=== PATIENT | female | born 1960 | race Caucasian/White ===

== ENCOUNTER → 2023-10-27 09:14 | Outpatient (CLI) | payer MEDICARE, SELFPAY ==
--- NOTE | 2023-10-27 | DI.MG.S_ITS ---
BILATERAL DIGITAL SCREENING MAMMOGRAM 3D/2D WITH CAD: 10/27/2023 CLINICAL: Routine screening. Baseline exam. No prior exams were available for comparison. There are scattered areas of fibroglandular density in both breasts (category b / 25%-50% glandular tissue). Current study was also evaluated with a Computer Aided Detection (CAD) system. There is a possible round asymmetry with an obscured, indistinct, and circumscribed margin in the right breast at 10 o'clock anterior depth. No other significant masses, calcifications, or other findings are seen in either breast. IMPRESSION: INCOMPLETE: NEEDS ADDITIONAL IMAGING EVALUATION The possible round asymmetry in the right breast is indeterminate. Additional views with possible ultrasound are recommended. Based on the Tyrer Cuzick model (a risk assessment model) the patient's lifetime risk is 5.5% and her 10 year risk is 2.6%. According to the ACR, ACS, and NCCN guidelines, an annual breast MRI exam along with mammogram is recommended if the patient's lifetime risk is 20% or greater. This exam was interpreted at Station ID: [id number]. NOTE: For mammograms, a report in lay terms will be sent to the patient. Approximately 15% of breast malignancies will not be visualized mammographically. In the management of a palpable breast mass, a negative mammogram must not discourage biopsy of a clinically suspicious lesion. Electronically Signed By: Maria bustamante/lucien:10/27/2023 16:14:10 letter sent: Additional Imaging Needed ACR BI-RADS Category 0: Incomplete 3340F
== END ==
LOC: MAMMO 09:16
PROVIDERS: PCP Family Medicine; Referring Provider Family Medicine; Visit Provider Family Medicine
DX: Z12.31 Encounter for screening mammogram for malignant neoplasm of breast (principal); R92.323 Mammographic fibroglandular density, bilateral breasts
CPT/HCPCS: 77063; 77067

== ENCOUNTER → 2023-11-08 15:25 | Outpatient (CLI) | payer MEDICARE, SELFPAY ==
[2023-11-08 17:37] LABS: Add Manual Diff / Slide Review NO; Basophils Absolute Auto 0 /uL (0-100); Basophils Percent Auto 0.2 % (0-2); Eosinophils Absolute Auto 100 /uL (0-450); Eosinophils Percent Auto 0.8 % (2-4); Hematocrit 43.4 % (36-46); Hemoglobin 14.9 g/dL (12.0-16.0); Lymphocytes Absolute Auto 1400 /uL (1100-4500); Lymphocytes Percent Auto 20.4 % (25-40); Mean Corpuscular HGB Conc 34.4 % (30-36); Mean Corpuscular Hemoglobin 31.7 PG (26-34); Mean Corpuscular Volume 92.1 fL (80-100); Monocytes Absolute Auto 500 /uL (0-900); Monocytes Percent Auto 7.6 % (3-14); Neutrophils Absolute Auto 5000 /uL (1500-7000); Platelet Count 235 X10^3/uL (150-400); Red Blood Cell Count 4.71 X10^6/uL (4.0-5.2); Red Cell Distribution Width 13.5 % (11.6-14.8)
[2023-11-08 18:32] LABS: Alanine Aminotransferase 24 IU/L (<35); Albumin 4.3 g/dL (3.5-5.0); Albumin Globulin Ratio 1.3 (1.0-2.8); Alkaline Phosphatase 108 U/L (38-126); Aspartate Aminotransferase 32 IU/L (14-36); BUN Creatinine Ratio 17.2 (6-22); Bilirubin Total 0.5 mg/dL (0.2-1.3); Blood Urea Nitrogen 11 mg/dL (7-17); Calcium 9.8 mg/dL (8.4-10.2); Carbon Dioxide 29 mmol/L (22-32); Chloride 103 mmol/L (98-107); Cholesterol 286 mg/dL (140-199); Estimated Glomerular Filt Rate > 60 mL/min (>60); Globulin 3.3 g/dL (1.7-4.1); Glucose 79 mg/dL (80-110); HDL Cholesterol 70 mg/dL (40-60); HEMOLYSIS < 15 (0-50); LDL Cholesterol Calculated 195 mg/dL (<100); Potassium 4.2 mmol/L (3.4-5.1); Sodium 139 mmol/L (137-145); Total Protein 7.6 g/dL (6.3-8.2); Triglycerides 107 mg/dL (35-150)
[2023-11-08 18:39] LABS: Hemoglobin A1C% w Est Avg Glu 5.1 % (4.0-6.0)
== END ==
PROVIDERS: PCP Family Medicine; Referring Provider Family Medicine; Visit Provider Family Medicine
DX: I44.7 Left bundle-branch block, unspecified (principal)
CPT/HCPCS: 36415; 80053; 80061; 83036; 85025

== ENCOUNTER → 2023-11-17 12:07 | Outpatient (CLI) | payer MEDICARE, SELFPAY ==
--- NOTE | 2023-11-17 12:08 | DI.MG.S_ITS ---
UNILATERAL RIGHT DIGITAL DIAGNOSTIC MAMMOGRAM 3D/2D WITH ADDITIONAL VIEWS: 11/17/2023 CLINICAL: Additional evaluation requested from prior study. Comparison is made to exam dated: 10/27/2023 mammogram - [facility]. There are scattered areas of fibroglandular density in the right breast (category b / 25%-50% glandular tissue). The finding seen on recent screening mammogram did not persist with additional imaging and is consistent with superimposition of normal breast tissue. No significant masses, calcifications, or other findings are seen in the breast. IMPRESSION: NEGATIVE Superimposition of normal breast tissue. No mammographic evidence of malignancy. A 1 year screening mammogram is recommended. Findings and recommendations were conveyed to the patient during today's evaluation. Based on the Tyrer Cuzick model (a risk assessment model) the patient's lifetime risk is 5.5% and her 10 year risk is 2.6%. According to the ACR, ACS, and NCCN guidelines, an annual breast MRI exam along with mammogram is recommended if the patient's lifetime risk is 20% or greater. This exam was interpreted at Station ID: [id number]. NOTE: For mammograms, a report in lay terms will be sent to the patient. Approximately 15% of breast malignancies will not be visualized mammographically. In the management of a palpable breast mass, a negative mammogram must not discourage biopsy of a clinically suspicious lesion. Electronically Signed By: Rebekah Reveles M.D., Ph.D. eb/:11/17/2023 13:18:15 letter sent: Normal Exam ACR BI-RADS Category 1: Negative 3341F
--- NOTE | 2023-11-17 12:30 | DI.RAD.S_ITS ---
PROCEDURE: XR DEXA AXIAL SKELETON INDICATIONS: screening COMPARISON: None. FINDINGS: Lumbar Spine: Bone mineral density 0.90 g/cm2, T score -1.3,. Left Hip: Bone mineral density 0.87 g/cm2, T score -0.6,. Left Femoral Neck: Bone mineral density 0.74 g/cm2, T score -1,. Right Hip: Bone mineral density 0.84 g/cm2, T score -0.8,. Right Femoral Neck: Bone mineral density 0.72 g/cm2, T score -1.2,. Fracture Risk Calculation (when applicable): 10-year fracture risk of a major osteoporotic fracture 8% and of a hip fracture 0.7%. (T score greater or equal to -1.0 to: NORMAL) (T score from -1.1 to -2.4: OSTEOPENIA) (T score less than or equal to -2.5: OSTEOPOROSIS) IMPRESSION: Osteopenia, with fracture risk calculations as above. Follow-up guidelines as follows: Osteoporosis: Consider a repeat DEXA and Vertebral Fracture Assessment (VFA) exam in 2 years or sooner if medically necessary, to reassess this patient's status. Osteopenia: Consider a repeat DEXA in 2-3 years to reassess this patient's status, or if there is a new clinical indication. Normal: Consider a repeat DEXA in 5 years or sooner, or if there is a new clinical indication. All treatment decisions require clinical judgment and consideration of individual patient factors, including patient preferences, comorbidities, previous drug use, risk factors not captured in the FRAX model (e.g., frailty, falls, vitamin D deficiency, increased bone turnover, interval significant decline in bone density ) and possible under- or over-estimation of fracture risk by FRAX. In addition, the NOF Guide recommends that FDA-approved medical therapies be considered in postmenopausal women and men age >= 50 years with a: * Hip or vertebral (clinical or morphometric) fracture * T-score of <=-2.5 at the spine or hip * Ten-year fracture probability by FRAX of >= 3% for hip fracture or >=20% for major osteoporotic fracture. People with diagnosed cases of osteoporosis or at high risk for fracture should have regular bone mineral density tests. For patients eligible for Medicare, routine testing is allowed once every 2 years. The testing frequency can be increased to one year for patients who have rapidly progressing disease, those who are receiving or discontinuing medical therapy to restore bone mass, or have additional risk factors. Dictated by: Mario Muñiz M.D. on 11/17/2023 at 17:15 Approved by: Mario Muñiz M.D. on 11/17/2023 at 17:17
== END ==
PROVIDERS: PCP Family Medicine; Referring Provider Family Medicine; Visit Provider Family Medicine
DX: R92.8 Other abnormal and inconclusive findings on diagnostic imaging of breast (principal); Z78.0 Asymptomatic menopausal state; M85.89 Other specified disorders of bone density and structure, multiple sites
CPT/HCPCS: 77065; 77080; G0279

== ENCOUNTER → 2024-01-06 09:58 | Outpatient (CLI) | payer MEDICARE, SELFPAY ==
[2024-01-06 12:30] LABS: Cholesterol 178 mg/dL (140-199); HDL Cholesterol 64 mg/dL (40-60); LDL Cholesterol Calculated 93 mg/dL (<100); Triglycerides 106 mg/dL (35-150)
[2024-01-06 14:38] LABS: HIV 1 & 2 Ab/Ag 4th Gen Combo NEGATIVE (NEGATIVE); Hep C Virus Ab w/Reflex Quant NEGATIVE s/c (NEGATIVE)
== END ==
PROVIDERS: Family Provider Family Medicine; PCP Family Medicine; Referring Provider Family Medicine; Visit Provider Family Medicine
DX: E78.5 Hyperlipidemia, unspecified (principal); Z11.59 Encounter for screening for other viral diseases; Z11.4 Encounter for screening for human immunodeficiency virus [HIV]
CPT/HCPCS: 36415; 80061; 86803; 87389

== ENCOUNTER → 2024-01-07 07:52 | Outpatient (CLI) | payer MEDICARE, SELFPAY ==
--- NOTE | 2024-01-07 08:02 | EKG_ITS ---
[address] [address] Test Date: 2024-01-07 Pat Name: Sissy Mercado Department: [facility] Room: Gender: Female Public Opinion Survey Taker: TAE : 1960 Requested By: Order Number: [id number] Reading MD: Carlos Martines Measurements Intervals [place] Rate: 69 P: 67 [place]: 200 QRS: -21 QRSD: 144 T: 88 QT: 416 QTc: 445 Interpretive Statements Normal sinus rhythm Left bundle branch block Electronically Signed On 01-07-2024 9:07:28 PDT by Carlos Martines
== END ==
PROVIDERS: Family Provider Family Medicine; PCP Family Medicine; Referring Provider Family Medicine; Visit Provider Family Medicine
DX: I44.7 Left bundle-branch block, unspecified (principal)
CPT/HCPCS: 93005

== ENCOUNTER 2024-02-08 13:18 | Day surgery (SDC) | payer MEDICARE, SELFPAY ==
[2024-02-08 13:55] VITALS: BP 141/79; PULSE 101; RESP 18; TEMP 36.2; O2SAT 95
--- NOTE | 2024-02-08 14:39 | P.HP_ITS ---
History of Present Illness History of Present Illness Date Patient Seen: 02/08/24 Time Patient Seen: 14:39 Chief complaint: Screening Colonoscopy Narrative: 63-year-old woman here for screening colonoscopy. Last colonoscopy 10 years ago at [facility] 1 benign polyp. No family history of colon cancer. No abdominal concerns. [facility] Medical History Migraines (~1989) Knee pain (~2017) Mumps (~1966) Chicken pox (~1965) Abnormal Pap smear of cervix (~1996) Post-menopause LBBB (left bundle branch block) (~2013) Bilateral knee pain Family History Father History of heart disease Grandfather Cancer Grandmother History of heart disease Social History Smoking Status: Never smoker alcohol intake: former Meds Home Medications and Allergies Home Medications Medication Instructions Recorded Confirmed Type tretinoin 0.025 % topical cream 1 applic topical BEDTIME 11/08/23 02/08/24 History (Retin-A) atorvastatin 20 mg tablet 20 mg PO BEDTIME #90 tabs 12/31/23 02/08/24 Rx clotrimazole 1 % topical cream 1 applic topical TID #45 grams 12/31/23 02/08/24 Rx Allergies Allergy/AdvReac Type Severity Reaction Status Date / Time No Known Drug Allergies Allergy Verified 02/08/24 13:53 Exam Vital Signs (past 8 hours): - 02/08/24 13:55 Temperature 97.1 F L Pulse Rate 101 H Respiratory Rate 18 Blood Pressure 141/79 H Pulse Oximetry 95 Oxygen Delivery Method Room Air Oxygen Delivery Method Room Air Narrative Exam Narrative: General adult woman alert oriented no acute distress Chest nonlabored respiration Extremities warm well perfused Assessment & Plan Assessment and plan (1) Personal history of colonic polyps: Status: Acute Assessment & Plan narrative: The patient requires colorectal screening and colonoscopy is recommended. Technical details were discussed. Risks, benefits, alternatives explained. Risks including but not limited to myocardial infarction, aspiration, bleeding, pain, missed lesion, incomplete examination, need for further radiographic s tudies, intestinal injury, and need for major abdominal surgery were discussed. All questions were answered to their satisfaction, and they are in agreement with this plan. Time-Based Coding :: [TOTAL MINUTES] spent with patient and on the chart (including review of chart, obtaining history, exam, reviewing outside data, placing orders, documenting exam and treatment plan, and counseling patient) on [DATE].
[2024-02-08 15:10] VITALS: BP 96/55; PULSE 79; RESP 17; TEMP 37.1; O2SAT 93
[2024-02-08 15:16] VITALS: BP 113/56; PULSE 78; RESP 13; O2SAT 94
--- NOTE | 2024-02-08 15:17 | P.OP.COLON_ITS ---
Operative Date/Time/Diagnoses Date of procedure: 02/08/24 Time of procedure: 15:17 Pre-op diagnosis: Personal history of colonic polyps Procedure & Clinicians Study performed: Screening colonoscopy Same procedure as scheduled: Yes Indications: Colorectal screening Surgeon: Doug Craft Procedure Notes Procedure in detail: The history and physical was performed/updated and the patient is ASA class is 2. The procedure was discussed in detail with the patient. Potential risks complications including infection, bleeding, missed diagnosis, perforation, need for surgery, and were explained. Their questions were answered and informed consent was obtained. Patient was brought to the procedure room and placed standard monitoring equipment. The patient's vital signs were monitored continuously throughout the entire procedure. Prior to starting time-out was performed. The patient was placed in the left lateral recumbent position. Procedural sedation was administered by anesthesia. Examination began with a thorough inspection of the perianal area there was no evidence of fissures, fistulae, external hemorrhoids or cutaneous malignancy. The colonoscopy scope was then placed into the anal canal and was advanced to the cecum, which was identified by the ileocecal valve, the appendiceal orifice and the confluence of the taenia. The scope was then slowly withdrawn examining colon thoroughly in all directions, irrigating it of any residual stool. The scope was retroflexed within the rectum The patient tolerated the procedure well. They will be discharged once criteria are met. The prep was of good/excellent quality. The withdrawl time was 7 minutes. FINDINGS * Tortuous proximal colon. Required stiffening of the scope and external compression. * Internal hemorrhoids * Mild diverticulosis of distal colon Specimen(s): none sent Post-procedure Recommendations: Colonoscopy in 10 years Disposition: same day surgery
[2024-02-08 15:22] VITALS: BP 104/68; PULSE 81; RESP 13; O2SAT 98
== END 2024-02-08 15:35 | disposition home or self-care (01) ==
PROVIDERS: Family Provider Family Medicine; PCP Family Medicine; Referring Provider Surgery; Visit Provider Surgery
PROC: 0DJD8ZZ Inspection of Lower Intestinal Tract, Via Natural or Artificial Opening Endoscopic (ICD-10-PCS; CPT 45378; principal; 2024-02-08 14:30)
DX: Z12.11 Encounter for screening for malignant neoplasm of colon (principal); Z86.0100 Personal history of colon polyps, unspecified; K57.30 Diverticulosis of large intestine without perforation or abscess without bleeding; K64.8 Other hemorrhoids
CPT/HCPCS: G0105; J2704

== ENCOUNTER 2024-02-17 09:45 | Outpatient (RCR) | payer MEDICARE, SELFPAY ==
--- NOTE | 2023-12-27 12:22 | PT.OIE ---
Current Diagnoses Pain in right knee (12/27/23) Pain in left knee (12/27/23) Difficulty in walking, not elsewhere classified (12/27/23) Abnormal posture (12/27/23) Weakness (12/27/23) Past Medical History (Last Updated 11/28/23 @ 19:48 by Maria Eugenia Ambrocio) Abnormal Pap smear of cervix (~1996) Bilateral knee pain Chicken pox (~1965) Knee pain (~2017) LBBB (left bundle branch block) (~2013) Migraines (~1989) Mumps (~1966) Post-menopause Visit Care Team Role Provider Type Eda Chandra MD Attending Provider Physician Family Provider Primary Care Provider Referring Provider Specialty: Family Practice WORKFORCE MANAGEMENT ANALYST Address: [address] [place] [address], [id number] Email: [email or web address] Physical Therapy Initial Evaluation PT-OP-A Visit Information Start: 12/20/23 08:35 Freq: Status: Active Protocol: Document 12/27/23 09:06 [facility] (Rec: 12/27/23 09:50 [facility] [id number]) Out-Patient Physical Therapy Visit Information Visit Information Visit Type Initial Evaluation Visit Start Time 09:06 Visit Stop Time 09:48 Visit Number 1 Number of GENERAL TECHNICIAN Visits 0 PT-OP-B Current Condition Start: 12/20/23 08:35 Freq: Status: Active Protocol: Document 12/27/23 09:06 [facility] (Rec: 12/27/23 09:50 [facility] [id number]) Current Condition History of Current Condition Onset Date 4 years Current Complaints B knee pain History of Current Condition Pt reprots used to hike a ton but now it is painfula nd she doesn't trust her knees. she is doing less distance and elevation. She fell about 4 years ago on granite and hurt her R hand a lot and focuse don that. Since then her knees haven't been the same. 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 Encouraged her to wear a brace when hiking but it was so hot so hasn't done it much. They also encuraged her to lose weight whichhasn't changed much. She is planning to try PT and work on wt more prior to injections. What scares her the most is when R>L gives out and that she cant get up from the ground. Knees lock up in bed until she tries to move it and she hears it click and it moves. Pt reports bending down like squat she gets crepitis and it hurts. Hasn't kayaked recently d/t difficulty getting in/out of the boat. Happed a few times where she was walking up a hill where she couldn't move fwd for about 4 steps and had to circumduct R leg. Treatment Goals Patient/Caregiver Goals exercises that would help knee OA, be able to get up/down from the ground, less pain w/ stairs and hills or feel like it will give out, get in/out of kayak (squat) PT-OP-C Subjective Start: 12/20/23 08:35 Freq: Status: Active Protocol: Document 12/27/23 09:06 [facility] (Rec: 12/27/23 09:50 [facility] [id number]) Patient Questionnaires Lower Extremity Functional Scale LEFS Score 64/80 OP-PT Pain Assessment Location B knees Pain Location Details lat and ant knee Description With Movement Description- Other loud crepitis Frequency Intermittent Pain Duration mostly goes away when done activty Pain Aggravating Factors Walking,Stair Climbing,Bending Other Pain Aggravating Factors squat, up/down ground, hiking w/hills, locks in bed Other Pain Alleviating Factors ibuprofen PT-OP-D Balance Start: 12/20/23 08:35 Freq: Status: Active Protocol: Document 12/27/23 09:06 [facility] (Rec: 12/27/23 09:50 [facility] [id number]) Balance Tests Single Limb Standing Single Limb- Right >30 sec Single Limb- Left >30 sec PT-OP-G Mobility & Gait Start: 12/20/23 08:35 Freq: Status: Active Protocol: Document 12/27/23 09:06 [facility] (Rec: 12/27/23 09:50 [facility] [id number]) OP Gait Assessment Comments Gait Comments dec trunk motion, excessive pronation PT-OP-J Posture/Palpation/Skin Start: 12/20/23 08:35 Freq: Status: Active Protocol: Document 12/27/23 09:06 [facility] (Rec: 12/27/23 09:50 [facility] [id number]) Posture Evaluation Comments Posture Comments R iliac crest higher, equal greater trochanter, IR of femur, ER tibia PT-OP-K Range of Motion Start: 12/20/23 08:35 Freq: Status: Active Protocol: Document 12/27/23 09:06 [facility] (Rec: 12/27/23 09:50 [facility] [id number]) Knee Goniometric Range of Motion Knee Left Flexion Active (degrees) 128 Extension Active (degrees) 0 Comments flex feel in back of thigh Right Flexion Active (degrees) 130 Extension Active (degrees) 3 Comments pain both directions PT-OP-L Special Tests Start: 12/20/23 08:35 Freq: Status: Active Protocol: Document 12/27/23 09:06 [facility] (Rec: 12/27/23 09:50 [facility] [id number]) Special Tests Knee Special Tests Chuck Test Comments neg B ligaments Comments ACL, MCL, PCL, LCL neg B PT-OP-M Strength Start: 12/20/23 08:35 Freq: Status: Active Protocol: Document 12/27/23 09:06 [facility] (Rec: 12/27/23 09:50 [facility] [id number]) Hip Strength Hip Manual Muscle Testing Left Flexion (L2) 3+ Fair+ Extension (S1) 4+ Good+ Abduction 3+ Fair+ Adduction 3+ Fair+ External Rotation 3+ Fair+ Internal Rotation 5 Normal Right Flexion (L2) 3+ Fair+ Extension (S1) 4+ Good+ Abduction 3+ Fair+ Adduction 3+ Fair+ External Rotation 3+ Fair+ Internal Rotation 5 Normal Knee Strength Knee Manual Muscle Testing Left Flexion (S2) 4- Good- Extension (L3) 4- Good- Right Flexion (S2) 4 Good Extension (L3) 4 Good Ankle/Foot Strength Ankle and Foot Manual Muscle Testing Left Dorsiflexion (L4) 5 Normal Plantarflexion (S1) 5 Normal Comments 20 heel raises pain in knee Right Dorsiflexion (L4) 5 Normal Plantarflexion (S1) 5 Normal Comments 20 heel raises w/knee pain and R foot(starts to bend R knee) PT-OP-Q Treatments Start: 12/20/23 08:35 Freq: Status: Active Protocol: Document 12/27/23 09:06 [facility] (Rec: 12/27/23 12:11 [facility] [id number]) Self-Care/Home Management Treatment Education Other Education 10 min: edu re: replacing shoes more frequently (had current ones for a couple years), showed pt wear down through tread and cushion, discussed what to look for in shoe w/bend at toes and equal rotational bending, fits foot fully w/o toes crunched or part of foot hanging off cushion, importance of tread for hiking, edu to try stepping up, squatting and walk entire store to assess comfort PT-OP-T Assessment and Plan Start: 12/20/23 08:35 Freq: Status: Active Protocol: Document 12/27/23 09:06 [facility] (Rec: 12/27/23 09:50 [facility] [id number]) Physical Therapy Assessment Rehab Potential Rehabilitation Potential Good Evaluation Complexity Number of Personal Factors/Comorbidities 1-2 Number of Body Systems Impaired 4 or More Clinical Presentation at Evaluation Evolving Impairments Impairments Activity Tolerance,Balance, Functional Activities, Functional Mobility,Gait,Pain, Posture,ROM,Soft Tissue Mobility,Strength,Transfers Goals strength Short Term Goal (STG) Pt will be indep w/HEP STG Duration 02/09 Fci Goal (LTG) Pt will score at least 4+/5 on all BLE MMT and at least 3/5 on LPM to show improved strength and stability in order to allow greater ease w/ activities w/o inc pain. LTG Duration 03/13 stairs Short Term Goal (STG) Pt will be able to reiciprocate up stairs w/o rail w/o inc knee pain. STG Duration 02/11 [facility]ci Goal (LTG) Pt will be able to reiciprocate down stairs w/o rail w/o inc knee pain. LTG Duration 03/20/24 activities Short Term Goal (STG) Pt will be able to get up/down from the ground indep safely STG Duration 02/12 [facility]ci Goal (LTG) Pt will be able to hike on hills w/o knee pain greater than 2/10 and without feeling unstable LTG Duration 03/18/24 Assessment Summary Assessment Pt presents w/B knee OA w/c/o increasingly worsening pain in B knees and giving out and locking sicne fall 4 years ago . She was negative for all ligamentous testing and Chuck testing, but does have significant loud popping w/squatting and/or sit<>Stands alng w/report of B OA noted in Xrays. She is overall weak and does have significant rotation at femurs and tibia likely increasing force onto knees. She would benefit from skilled PT to work on strength , ROM, mobility and gait mechanics to improve movement mechanics and dec pain. Physical Therapy Plan Frequency and Duration Frequency of Treatment 2x/Week Duration of treatment (weeks) 12 Plan of Care Start Date 12/27/23 Plan of Care End Date 03/20/24 Therapeutic Interventions Therapeutic Interventions Balance Training,Gait Training ,Home Exercise Program,Joint Mobilizations,Manual Therapy, Neuromuscular Re-education, Patient/Caregiver Education, Self-Care/Home Management,Soft Tissue Mobilization,Taping, Therapeutic Activities, Therapeutic Exercises Modalities Cold Pack/Ice Massage,Electric Stimulation,Hot Packs, Infrared Therapy,Ultrasound Next Visit Focus/Plan Next Note Type Treatment Note Next Visit Plan HEP: sidesteps w/band, mini squats, bridges, clamshells, self roll out, stretches as needed Manual: work on foot/ankle and hip mobility (gentle as pt has osteopenia) to improve alignment along w/knee mobs to improve gliding; STM to thighs
--- NOTE | 2023-12-27 12:22 | PT.OPPOC ---
Physical, Occupational & Speech Therapy At [facility] Current Diagnoses Pain in right knee (12/27/23) Pain in left knee (12/27/23) Difficulty in walking, not elsewhere classified (12/27/23) Abnormal posture (12/27/23) Weakness (12/27/23) Visit Care Team Role Provider Type Eda Chandra MD Attending Provider Physician Family Provider Primary Care Provider Referring Provider Specialty: Family Practice STEAM BLOCKER Address: [facility] [place], [address] Email: [email or web address] Plan Of Care PT-OP-B Current Condition Start: 12/20/23 08:35 Freq: Status: Active Protocol: Document 12/27/23 09:06 [facility] (Rec: 12/27/23 09:50 [facility] [id number]) Current Condition History of Current Condition Onset Date 4 years Current Complaints B knee pain History of Current Condition Pt reprots used to hike a ton but now it is painfula nd she doesn't trust her knees. she is doing less distance and elevation. She fell about 4 years ago on [place] and hurt her R hand a lot and focuse don that. Since then her knees haven't been the same. 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 Encouraged her to wear a brace when hiking but it was so hot so hasn't done it much. They also encuraged her to lose weight whichhasn't changed much. She is planning to try PT and work on wt more prior to injections. What scares her the most is when R>L gives out and that she cant get up from the ground. Knees lock up in bed until she tries to move it and she hears it click and it moves. Pt reports bending down like squat she gets crepitis and it hurts. Hasn't kayaked recently d/t difficulty getting in/out of the boat. Happed a few times where she was walking up a hill where she couldn't move fwd for about 4 steps and had to circumduct R leg. Treatment Goals Patient/Caregiver Goals exercises that would help knee OA, be able to get up/down from the ground, less pain w/ stairs and hills or feel like it will give out, get in/out of kayak (squat) PT-OP-T Assessment and Plan Start: 12/20/23 08:35 Freq: Status: Active Protocol: Document 12/27/23 09:06 [facility] (Rec: 12/27/23 09:50 [facility] [id number]) Physical Therapy Assessment Rehab Potential Rehabilitation Potential Good Evaluation Complexity Number of Personal Factors/Comorbidities 1-2 Number of Body Systems Impaired 4 or More Clinical Presentation at Evaluation Evolving Impairments Impairments Activity Tolerance,Balance, Functional Activities, Functional Mobility,Gait,Pain, Posture,ROM,Soft Tissue Mobility,Strength,Transfers Goals strength Short Term Goal (STG) Pt will be indep w/HEP STG Duration 02/09 Custodial Goal (LTG) Pt will score at least 4+/5 on all BLE MMT and at least 3/5 on LPM to show improved strength and stability in order to allow greater ease w/ activities w/o inc pain. LTG Duration 03/13 stairs Short Term Goal (STG) Pt will be able to reiciprocate up stairs w/o rail w/o inc knee pain. STG Duration 02/11 Drilling Contractor Goal (LTG) Pt will be able to reiciprocate down stairs w/o rail w/o inc knee pain. LTG Duration 03/20/24 activities Short Term Goal (STG) Pt will be able to get up/down from the ground indep safely STG Duration 02/12 Drilling Contractor Goal (LTG) Pt will be able to hike on hills w/o knee pain greater than 2/10 and without feeling unstable LTG Duration 03/18/24 Assessment Summary Assessment Pt presents w/B knee OA w/c/o increasingly worsening pain in B knees and giving out and locking sicne fall 4 years ago . She was negative for all ligamentous testing and [place] testing, but does have significant loud popping w/squatting and/or sit<>Stands alng w/report of B OA noted in Xrays. She is overall weak and does have significant rotation at femurs and tibia likely increasing force onto knees. She would benefit from skilled PT to work on strength , ROM, mobility and gait mechanics to improve movement mechanics and dec pain. Physical Therapy Plan Frequency and Duration Frequency of Treatment 2x/Week Duration of treatment (weeks) 12 Plan of Care Start Date 12/27/23 Plan of Care End Date 03/20/24 Therapeutic Interventions Therapeutic Interventions Balance Training,Gait Training ,Home Exercise Program,Joint Mobilizations,Manual Therapy, Neuromuscular Re-education, Patient/Caregiver Education, Self-Care/Home Management,Soft Tissue Mobilization,Taping, Therapeutic Activities, Therapeutic Exercises Modalities Cold Pack/Ice Massage,Electric Stimulation,Hot Packs, Infrared Therapy,Ultrasound Next Visit Focus/Plan Next Note Type Treatment Note Next Visit Plan HEP: sidesteps w/band, mini squats, bridges, clamshells, self roll out, stretches as needed Manual: work on foot/ankle and hip mobility (gentle as pt has osteopenia) to improve alignment along w/knee mobs to improve gliding; STM to thighs Plan of Care Dates Plan of Care Start Date 12/27/23 Plan of Care End Date 03/20/24 Electronically Signed by: Kimberly Dewey, PT 12/27/23 [id number] If you are in agreement with this Plan of Care, please return a signed and dated copy. I have reviewed this Plan of Care and certify that the skilled therapy services above are required to meet the patient?s needs. Physician Signature Date Printed Name and Credentials Clinical Instructor Signature Printed Name and Credentials
--- NOTE | 2023-12-30 12:25 | PT.OTN ---
Current Diagnoses Pain in right knee (12/30/23) Pain in left knee (12/30/23) Difficulty in walking, not elsewhere classified (12/30/23) Abnormal posture (12/30/23) Weakness (12/30/23) Physical Therapy Treatment Note PT-OP-A Visit Information Start: 12/20/23 08:35 Freq: Status: Active Protocol: Document 12/30/23 09:02 [facility] (Rec: 12/30/23 12:25 [facility] [id number]) Out-Patient Physical Therapy Visit Information Visit Information Visit Type Treatment Note Visit Note 04/24 Visit Start Time 09:06 Visit Stop Time 09:46 Visit Number 2 Number of HAUL DRIVER Visits 0 PT-OP-B Current Condition Start: 12/20/23 08:35 Freq: Status: Active Protocol: Document 12/27/23 09:06 [facility] (Rec: 12/27/23 09:50 [facility] [id number]) Current Condition History of Current Condition Onset Date 4 years Current Complaints B knee pain History of Current Condition Pt reprots used to hike a ton but now it is painfula nd she doesn't trust her knees. she is doing less distance and elevation. She fell about 4 years ago on [place] and hurt her R hand a lot and focuse don that. Since then her knees haven't been the same. 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 Encouraged her to wear a brace when hiking but it was so hot so hasn't done it much. They also encuraged her to lose weight whichhasn't changed much. She is planning to try PT and work on wt more prior to injections. What scares her the most is when R>L gives out and that she cant get up from the ground. Knees lock up in bed until she tries to move it and she hears it click and it moves. Pt reports bending down like squat she gets crepitis and it hurts. Hasn't kayaked recently d/t difficulty getting in/out of the boat. Happed a few times where she was walking up a hill where she couldn't move fwd for about 4 steps and had to circumduct R leg. Treatment Goals Patient/Caregiver Goals exercises that would help knee OA, be able to get up/down from the ground, less pain w/ stairs and hills or feel like it will give out, get in/out of kayak (squat) PT-OP-C Subjective Start: 12/20/23 08:35 Freq: Status: Active Protocol: Document 12/30/23 09:02 [facility] (Rec: 12/30/23 12:25 [facility] [id number]) OP-PT Subjective Patient Comments Patient Comments Reports found that she had gortex shoes at home that were new that she is wearing PT-OP-D Balance Start: 12/20/23 08:35 Freq: Status: Active Protocol: Document 12/27/23 09:06 [facility] (Rec: 12/27/23 09:50 [facility] [id number]) Balance Tests Single Limb Standing Single Limb- Right >30 sec Single Limb- Left >30 sec PT-OP-G Mobility & Gait Start: 12/20/23 08:35 Freq: Status: Active Protocol: Document 12/27/23 09:06 [facility] (Rec: 12/27/23 09:50 [facility] [id number]) OP Gait Assessment Comments Gait Comments dec trunk motion, excessive pronation PT-OP-J Posture/Palpation/Skin Start: 12/20/23 08:35 Freq: Status: Active Protocol: Document 12/27/23 09:06 [facility] (Rec: 12/27/23 09:50 [facility] [id number]) Posture Evaluation Comments Posture Comments R iliac crest higher, equal greater trochanter, IR of femur, ER tibia PT-OP-K Range of Motion Start: 12/20/23 08:35 Freq: Status: Active Protocol: Document 12/27/23 09:06 [facility] (Rec: 12/27/23 09:50 [facility] [id number]) Knee Goniometric Range of Motion Knee Left Flexion Active (degrees) 128 Extension Active (degrees) 0 Comments flex feel in back of thigh Right Flexion Active (degrees) 130 Extension Active (degrees) 3 Comments pain both directions PT-OP-L Special Tests Start: 12/20/23 08:35 Freq: Status: Active Protocol: Document 12/27/23 09:06 [facility] (Rec: 12/27/23 09:50 [facility] [id number]) Special Tests Knee Special Tests Chuck Test Comments neg B ligaments Comments ACL, MCL, PCL, LCL neg B PT-OP-M Strength Start: 12/20/23 08:35 Freq: Status: Active Protocol: Document 12/27/23 09:06 [facility] (Rec: 12/27/23 09:50 [facility] [id number]) Hip Strength Hip Manual Muscle Testing Left Flexion (L2) 3+ Fair+ Extension (S1) 4+ Good+ Abduction 3+ Fair+ Adduction 3+ Fair+ External Rotation 3+ Fair+ Internal Rotation 5 Normal Right Flexion (L2) 3+ Fair+ Extension (S1) 4+ Good+ Abduction 3+ Fair+ Adduction 3+ Fair+ External Rotation 3+ Fair+ Internal Rotation 5 Normal Knee Strength Knee Manual Muscle Testing Left Flexion (S2) 4- Good- Extension (L3) 4- Good- Right Flexion (S2) 4 Good Extension (L3) 4 Good Ankle/Foot Strength Ankle and Foot Manual Muscle Testing Left Dorsiflexion (L4) 5 Normal Plantarflexion (S1) 5 Normal Comments 20 heel raises pain in knee Right Dorsiflexion (L4) 5 Normal Plantarflexion (S1) 5 Normal Comments 20 heel raises w/knee pain and R foot(starts to bend R knee) PT-OP-Q Treatments Start: 12/20/23 08:35 Freq: Status: Active Protocol: Document 12/30/23 09:02 [facility] (Rec: 12/30/23 12:25 [facility] [id number]) Therapeutic Exercises Supine Exercises bridge Side bilateral Equipment Used L2 Reps/Minutes 10 sec x6 Comments cues segmental Sidelying Exercises clamshells Side bilateral Equipment Used L2 Reps/Minutes 12 ea Comments cues no roll Standing Exercises stretch Standing Exercise Name 1. quad on chair 2. calf on step Side bilateral Reps/Minutes 1 min ea Comments HEP mini squats Standing Exercise Name 1. w/band aroudn knees 2. wall squat w/ball Side bilateral Reps/Minutes 15 ea Comments wall squat for HEP partial range sidesteps Standing Exercise Name HEP Side bilateral Equipment Used L2 Reps/Minutes 20ft Comments cues on posture, and controlled position Manual Therapy Treatment Consent Patient gave verbal consent for manual Yes treatment Soft Tissue Mobilization quad Body Location L distal Mobilization Type Rolling,Sustained Pressure, Trigger Point Release Intensity/Depth Moderate Joint Mobilizations patello femoral Joint B Grade II Body Position Supine Comments sup, inf, med tibiofemoral Comments AP B femur and tibia ea Taping KT Type of Tape Kinesio Tape Comments 1 I strip under each patella PT-OP-T Assessment and Plan Start: 12/20/23 08:35 Freq: Status: Active Protocol: Document 12/30/23 09:02 [facility] (Rec: 12/30/23 12:25 [facility] [id number]) Physical Therapy Assessment Goals strength Short Term Goal (STG) Pt will be indep w/HEP STG Duration 02/09 Respiratory Clinician Goal (LTG) Pt will score at least 4+/5 on all BLE MMT and at least 3/5 on LPM to show improved strength and stability in order to allow greater ease w/ activities w/o inc pain. LTG Duration 03/13 stairs Short Term Goal (STG) Pt will be able to reiciprocate up stairs w/o rail w/o inc knee pain. STG Duration 02/11 Residential Goal (LTG) Pt will be able to reiciprocate down stairs w/o rail w/o inc knee pain. LTG Duration 03/20/24 activities Short Term Goal (STG) Pt will be able to get up/down from the ground indep safely STG Duration 02/12 Residential Goal (LTG) Pt will be able to hike on hills w/o knee pain greater than 2/10 and without feeling unstable LTG Duration 03/18/24 Assessment Summary Assessment Pt did well with exercsies w/ cues today but all given for HEP did not inc pain. inc pain when tried SL bridge so will progress to that later. Physical Therapy Plan Frequency and Duration Frequency of Treatment 2x/Week Duration of treatment (weeks) 12 Plan of Care Start Date 12/27/23 Plan of Care End Date 03/20/24 Next Visit Focus/Plan Next Note Type Treatment Note Next Visit Plan HEP: sidesteps w/band, mini squats, bridges, clamshells, stretches add self roll out Manual: work on foot/ankle and hip mobility (gentle as pt has osteopenia) to improve alignment along w/knee mobs to improve gliding; STM to thighs
--- NOTE | 2024-01-03 18:29 | PT.OTN ---
Current Diagnoses Pain in right knee (12/30/23) Pain in left knee (12/30/23) Difficulty in walking, not elsewhere classified (12/30/23) Abnormal posture (12/30/23) Weakness (12/30/23) Physical Therapy Treatment Note PT-OP-A Visit Information Start: 12/20/23 08:35 Freq: Status: Active Protocol: Document 01/03/24 18:26 [facility] (Rec: 01/03/24 18:29 [facility] [id number]) Out-Patient Physical Therapy Visit Information Visit Information Visit Type Treatment Note Visit Note 05/22 Visit Start Time 09:07 Visit Stop Time 09:47 Visit Number 3 Number of UPTWISTER TENDER Visits 0 PT-OP-B Current Condition Start: 12/20/23 08:35 Freq: Status: Active Protocol: Document 12/27/23 09:06 [facility] (Rec: 12/27/23 09:50 [facility] [id number]) Current Condition History of Current Condition Onset Date 4 years Current Complaints B knee pain History of Current Condition Pt reprots used to hike a ton but now it is painfula nd she doesn't trust her knees. she is doing less distance and elevation. She fell about 4 years ago on [place] and hurt her R hand a lot and focuse don that. Since then her knees haven't been the same. 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 Encouraged her to wear a brace when hiking but it was so hot so hasn't done it much. They also encuraged her to lose weight whichhasn't changed much. She is planning to try PT and work on wt more prior to injections. What scares her the most is when R>L gives out and that she cant get up from the ground. Knees lock up in bed until she tries to move it and she hears it click and it moves. Pt reports bending down like squat she gets crepitis and it hurts. Hasn't kayaked recently d/t difficulty getting in/out of the boat. Happed a few times where she was walking up a hill where she couldn't move fwd for about 4 steps and had to circumduct R leg. Treatment Goals Patient/Caregiver Goals exercises that would help knee OA, be able to get up/down from the ground, less pain w/ stairs and hills or feel like it will give out, get in/out of kayak (squat) PT-OP-C Subjective Start: 12/20/23 08:35 Freq: Status: Active Protocol: Document 01/03/24 18:26 [facility] (Rec: 01/03/24 18:29 [facility] [id number]) OP-PT Subjective Patient Comments Patient Comments feels like tape helped. was a little sore after last session . [place] so only did soem exercises this weekend PT-OP-D Balance Start: 12/20/23 08:35 Freq: Status: Active Protocol: Document 12/27/23 09:06 [facility] (Rec: 12/27/23 09:50 [facility] [id number]) Balance Tests Single Limb Standing Single Limb- Right >30 sec Single Limb- Left >30 sec PT-OP-G Mobility & Gait Start: 12/20/23 08:35 Freq: Status: Active Protocol: Document 12/27/23 09:06 [facility] (Rec: 12/27/23 09:50 [facility] [id number]) OP Gait Assessment Comments Gait Comments dec trunk motion, excessive pronation PT-OP-J Posture/Palpation/Skin Start: 12/20/23 08:35 Freq: Status: Active Protocol: Document 12/27/23 09:06 [facility] (Rec: 12/27/23 09:50 [facility] [id number]) Posture Evaluation Comments Posture Comments R iliac crest higher, equal greater trochanter, IR of femur, ER tibia PT-OP-K Range of Motion Start: 12/20/23 08:35 Freq: Status: Active Protocol: Document 12/27/23 09:06 [facility] (Rec: 12/27/23 09:50 [facility] [id number]) Knee Goniometric Range of Motion Knee Left Flexion Active (degrees) 128 Extension Active (degrees) 0 Comments flex feel in back of thigh Right Flexion Active (degrees) 130 Extension Active (degrees) 3 Comments pain both directions PT-OP-L Special Tests Start: 12/20/23 08:35 Freq: Status: Active Protocol: Document 12/27/23 09:06 [facility] (Rec: 12/27/23 09:50 [facility] [id number]) Special Tests Knee Special Tests Chuck Test Comments neg B ligaments Comments ACL, MCL, PCL, LCL neg B PT-OP-M Strength Start: 12/20/23 08:35 Freq: Status: Active Protocol: Document 12/27/23 09:06 [facility] (Rec: 12/27/23 09:50 [facility] [id number]) Hip Strength Hip Manual Muscle Testing Left Flexion (L2) 3+ Fair+ Extension (S1) 4+ Good+ Abduction 3+ Fair+ Adduction 3+ Fair+ External Rotation 3+ Fair+ Internal Rotation 5 Normal Right Flexion (L2) 3+ Fair+ Extension (S1) 4+ Good+ Abduction 3+ Fair+ Adduction 3+ Fair+ External Rotation 3+ Fair+ Internal Rotation 5 Normal Knee Strength Knee Manual Muscle Testing Left Flexion (S2) 4- Good- Extension (L3) 4- Good- Right Flexion (S2) 4 Good Extension (L3) 4 Good Ankle/Foot Strength Ankle and Foot Manual Muscle Testing Left Dorsiflexion (L4) 5 Normal Plantarflexion (S1) 5 Normal Comments 20 heel raises pain in knee Right Dorsiflexion (L4) 5 Normal Plantarflexion (S1) 5 Normal Comments 20 heel raises w/knee pain and R foot(starts to bend R knee) PT-OP-Q Treatments Start: 12/20/23 08:35 Freq: Status: Active Protocol: Document 01/03/24 18:26 [facility] (Rec: 01/03/24 18:29 [facility] [id number]) Therapeutic Exercises Supine Exercises bridge Side bilateral Equipment Used L2 at knees Reps/Minutes 10 sec x10 Comments cues segmental Sidelying Exercises clamshells Side bilateral Equipment Used L2 Reps/Minutes 12 ea Comments cues no roll Standing Exercises stretch Standing Exercise Name 1. quad on chair 2. calf on step Side bilateral Reps/Minutes 1 min ea Comments HEP mini squats Standing Exercise Name wall squat w/ball-cues set up Side bilateral Reps/Minutes 15 ea Comments HEP partial range sidesteps Standing Exercise Name HEP Side bilateral Equipment Used L2 Reps/Minutes 20ft Comments cues on posture, and controlled position Manual Therapy Treatment Consent Patient gave verbal consent for manual Yes treatment Soft Tissue Mobilization quad Body Location R distal Mobilization Type Rolling,Sustained Pressure, Trigger Point Release Intensity/Depth Moderate Joint Mobilizations patello femoral Joint R Grade II Body Position Supine Comments sup, inf, med Taping Melecio Comments for med glide, tilt and rot B PT-OP-T Assessment and Plan Start: 12/20/23 08:35 Freq: Status: Active Protocol: Document 01/03/24 18:26 [facility] (Rec: 01/03/24 18:29 [facility] [id number]) Physical Therapy Assessment Goals strength Short Term Goal (STG) Pt will be indep w/HEP STG Duration 02/09 Halfway Goal (LTG) Pt will score at least 4+/5 on all BLE MMT and at least 3/5 on LPM to show improved strength and stability in order to allow greater ease w/ activities w/o inc pain. LTG Duration 03/13 stairs Short Term Goal (STG) Pt will be able to reiciprocate up stairs w/o rail w/o inc knee pain. STG Duration 02/11 Halfway Goal (LTG) Pt will be able to reiciprocate down stairs w/o rail w/o inc knee pain. LTG Duration 03/20/24 activities Short Term Goal (STG) Pt will be able to get up/down from the ground indep safely STG Duration 02/12 Halfway Goal (LTG) Pt will be able to hike on hills w/o knee pain greater than 2/10 and without feeling unstable LTG Duration 03/18/24 Assessment Summary Assessment Cues needed w/exercises and new handout given to patient. Significant restriction in B knees at PF joints likely causing popping noise. Pt had improved squat range w/tape prior to cracking noise in knees Physical Therapy Plan Frequency and Duration Frequency of Treatment 2x/Week Duration of treatment (weeks) 12 Plan of Care Start Date 12/27/23 Plan of Care End Date 03/20/24 Next Visit Focus/Plan Next Note Type Treatment Note Next Visit Plan review HEP: sidesteps w/band, mini squats, bridges, clamshells, stretches add self roll out Manual: work on foot/ankle and hip mobility (gentle as pt has osteopenia) to improve alignment along w/knee mobs to improve gliding; STM to thighs
--- NOTE | 2024-01-06 09:47 | PT.OTN ---
Current Diagnoses Pain in right knee (01/06/24) Pain in left knee (01/06/24) Difficulty in walking, not elsewhere classified (01/06/24) Abnormal posture (01/06/24) Weakness (01/06/24) Physical Therapy Treatment Note PT-OP-A Visit Information Start: 12/20/23 08:35 Freq: Status: Active Protocol: Document 01/06/24 09:05 SP (Rec: 01/06/24 09:49 SP [id number]) Out-Patient Physical Therapy Visit Information Visit Information Visit Type Treatment Note Visit Note 06/22 Visit Start Time 09:05 Visit Stop Time 09:47 Visit Number 4 (06/22 since eval) Number of LEASING MACHINE TENDER Visits 1 PT-OP-B Current Condition Start: 12/20/23 08:35 Freq: Status: Active Protocol: Document 12/27/23 09:06 [facility] (Rec: 12/27/23 09:50 [facility] [id number]) Current Condition History of Current Condition Onset Date 4 years Current Complaints B knee pain History of Current Condition Pt reprots used to hike a ton but now it is painfula nd she doesn't trust her knees. she is doing less distance and elevation. She fell about 4 years ago on [place] and hurt her R hand a lot and focuse don that. Since then her knees haven't been the same. 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 Encouraged her to wear a brace when hiking but it was so hot so hasn't done it much. They also encuraged her to lose weight whichhasn't changed much. She is planning to try PT and work on wt more prior to injections. What scares her the most is when R>L gives out and that she cant get up from the ground. Knees lock up in bed until she tries to move it and she hears it click and it moves. Pt reports bending down like squat she gets crepitis and it hurts. Hasn't kayaked recently d/t difficulty getting in/out of the boat. Happed a few times where she was walking up a hill where she couldn't move fwd for about 4 steps and had to circumduct R leg. Treatment Goals Patient/Caregiver Goals exercises that would help knee OA, be able to get up/down from the ground, less pain w/ stairs and hills or feel like it will give out, get in/out of kayak (squat) PT-OP-C Subjective Start: 12/20/23 08:35 Freq: Status: Active Protocol: Document 01/06/24 09:05 SP (Rec: 01/06/24 09:49 SP [id number]) OP-PT Subjective Patient Comments Patient Comments Pt reports Majano taping helped but only lasted through yesterday then start peeling. Unsure if Ktaping or Majano tape is better supporting. Will let us know next tx. She stated less knee pain out on hike incline/ decline, no bucking or knee pain that lasted. PT-OP-D Balance Start: 12/20/23 08:35 Freq: Status: Active Protocol: Document 12/27/23 09:06 [facility] (Rec: 12/27/23 09:50 [facility] [id number]) Balance Tests Single Limb Standing Single Limb- Right >30 sec Single Limb- Left >30 sec PT-OP-G Mobility & Gait Start: 12/20/23 08:35 Freq: Status: Active Protocol: Document 12/27/23 09:06 [facility] (Rec: 12/27/23 09:50 [facility] [id number]) OP Gait Assessment Comments Gait Comments dec trunk motion, excessive pronation PT-OP-J Posture/Palpation/Skin Start: 12/20/23 08:35 Freq: Status: Active Protocol: Document 12/27/23 09:06 [facility] (Rec: 12/27/23 09:50 [facility] [id number]) Posture Evaluation Comments Posture Comments R iliac crest higher, equal greater trochanter, IR of femur, ER tibia PT-OP-K Range of Motion Start: 12/20/23 08:35 Freq: Status: Active Protocol: Document 12/27/23 09:06 [facility] (Rec: 12/27/23 09:50 [facility] [id number]) Knee Goniometric Range of Motion Knee Left Flexion Active (degrees) 128 Extension Active (degrees) 0 Comments flex feel in back of thigh Right Flexion Active (degrees) 130 Extension Active (degrees) 3 Comments pain both directions PT-OP-L Special Tests Start: 12/20/23 08:35 Freq: Status: Active Protocol: Document 12/27/23 09:06 [facility] (Rec: 12/27/23 09:50 [facility] [id number]) Special Tests Knee Special Tests Chuck Test Comments neg B ligaments Comments ACL, MCL, PCL, LCL neg B PT-OP-M Strength Start: 12/20/23 08:35 Freq: Status: Active Protocol: Document 12/27/23 09:06 [facility] (Rec: 12/27/23 09:50 [facility] [id number]) Hip Strength Hip Manual Muscle Testing Left Flexion (L2) 3+ Fair+ Extension (S1) 4+ Good+ Abduction 3+ Fair+ Adduction 3+ Fair+ External Rotation 3+ Fair+ Internal Rotation 5 Normal Right Flexion (L2) 3+ Fair+ Extension (S1) 4+ Good+ Abduction 3+ Fair+ Adduction 3+ Fair+ External Rotation 3+ Fair+ Internal Rotation 5 Normal Knee Strength Knee Manual Muscle Testing Left Flexion (S2) 4- Good- Extension (L3) 4- Good- Right Flexion (S2) 4 Good Extension (L3) 4 Good Ankle/Foot Strength Ankle and Foot Manual Muscle Testing Left Dorsiflexion (L4) 5 Normal Plantarflexion (S1) 5 Normal Comments 20 heel raises pain in knee Right Dorsiflexion (L4) 5 Normal Plantarflexion (S1) 5 Normal Comments 20 heel raises w/knee pain and R foot(starts to bend R knee) PT-OP-Q Treatments Start: 12/20/23 08:35 Freq: Status: Active Protocol: Document 01/06/24 09:05 SP (Rec: 01/06/24 09:49 SP [id number]) Therapeutic Exercises Sidelying Exercises clamshells Side bilateral Resistance L2 TB at lower thighs Equipment Used top hand on table front Reps/Minutes 20 ea Comments cued TA no pelvic roll backward, improved with kick stand top hand on table Standing Exercises lateral step up Standing Exercise Name added to HEP- declined HO Side bilateral Equipment Used 6 step Reps/Minutes 10 reps Comments cued knee behind and with midfoot for hip abd & quad strength sidesteps Standing Exercise Name HEP Side bilateral Resistance L2>L3 at ankles Reps/Minutes 20ft x2 laps Comments cues controlled eccentric return, DF foot clearance on L going R Other Exercises self STMs Other Exercise Name added PRN: quad ITB Side bilateral Comments rolling pin and tool- see manual ed Manual Therapy Treatment Consent Patient gave verbal consent for manual Yes treatment Soft Tissue Mobilization quad Body Location R distal quad, pat tendon ITB Mobilization Type Rolling,Sustained Pressure Intensity/Depth Moderate Comments manual STMs: quad, ITB rolling pin gross motor, tool distal quad superior patella, ITB Joint Mobilizations patello femoral Joint R>L Grade II Body Position Supine Comments sup, inf, med, medial tilt, rotation Taping Majano Body Location B patella Treatment Focus midline patella stability Comments for med glide, med tilt and CW rot R/CCW rot L PT-OP-T Assessment and Plan Start: 12/20/23 08:35 Freq: Status: Active Protocol: Document 01/06/24 09:05 SP (Rec: 01/06/24 09:49 SP [id number]) Physical Therapy Assessment Goals strength Short Term Goal (STG) Pt will be indep w/HEP STG Duration 02/09 [facility] Goal (LTG) Pt will score at least 4+/5 on all BLE MMT and at least 3/5 on LPM to show improved strength and stability in order to allow greater ease w/ activities w/o inc pain. LTG Duration 03/13 stairs Short Term Goal (STG) Pt will be able to reiciprocate up stairs w/o rail w/o inc knee pain. STG Duration 02/11 Chyron Operator Goal (LTG) Pt will be able to reiciprocate down stairs w/o rail w/o inc knee pain. LTG Duration 03/20/24 activities Short Term Goal (STG) Pt will be able to get up/down from the ground indep safely STG Duration 02/12 Chyron Operator Goal (LTG) Pt will be able to hike on hills w/o knee pain greater than 2/10 and without feeling unstable LTG Duration 03/18/24 Assessment Summary Assessment Pt responded well to manual STMs and instruction on self application use tooling and rolling pin for decreased quad tightness for knee flexion. Good tolerance and report muscle tiring not pain to addition of resistance to clamshells again and increased resistance to side stepping and AROM lateral stepping tactile and VCs for knee alignment behind and mid foot corrections. Physical Therapy Plan Frequency and Duration Frequency of Treatment 2x/Week Duration of treatment (weeks) 12 Plan of Care Start Date 12/27/23 Plan of Care End Date 03/20/24 Therapeutic Interventions Therapeutic Interventions Balance Training,Gait Training ,Home Exercise Program,Joint Mobilizations,Manual Therapy, Neuromuscular Re-education, Patient/Caregiver Education, Self-Care/Home Management,Soft Tissue Mobilization,Taping, Therapeutic Activities, Therapeutic Exercises Modalities Cold Pack/Ice Massage,Electric Stimulation,Hot Packs, Infrared Therapy,Ultrasound Next Visit Focus/Plan Next Note Type Treatment Note Next Visit Plan review HEP: sidesteps w/band, mini squats, bridges, clamshells /c band, stretches add self roll out, tooling distal quad/patellar tendon Manual: work on foot/ankle and hip mobility (gentle as pt has osteopenia) to improve alignment along w/knee mobs to improve gliding; STM to thighs
--- NOTE | 2024-01-10 13:30 | PT.OTN ---
Current Diagnoses Pain in right knee (01/10/24) Pain in left knee (01/10/24) Difficulty in walking, not elsewhere classified (01/10/24) Abnormal posture (01/10/24) Weakness (01/10/24) Physical Therapy Treatment Note PT-OP-A Visit Information Start: 12/20/23 08:35 Freq: Status: Active Protocol: Document 01/10/24 09:06 [facility] (Rec: 01/10/24 13:30 [facility] [id number]) Out-Patient Physical Therapy Visit Information Visit Information Visit Type Treatment Note Visit Note 07/22 Visit Start Time 09:06 Visit Stop Time 09:45 Visit Number 5 (07/22 since eval) Number of INSTRUCTOR KNITTING Visits 0 PT-OP-B Current Condition Start: 12/20/23 08:35 Freq: Status: Active Protocol: Document 12/27/23 09:06 [facility] (Rec: 12/27/23 09:50 [facility] [id number]) Current Condition History of Current Condition Onset Date 4 years Current Complaints B knee pain History of Current Condition Pt reprots used to hike a ton but now it is painfula nd she doesn't trust her knees. she is doing less distance and elevation. She fell about 4 years ago on [place] and hurt her R hand a lot and focuse don that. Since then her knees haven't been the same. 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 Encouraged her to wear a brace when hiking but it was so hot so hasn't done it much. They also encuraged her to lose weight whichhasn't changed much. She is planning to try PT and work on wt more prior to injections. What scares her the most is when R>L gives out and that she cant get up from the ground. Knees lock up in bed until she tries to move it and she hears it click and it moves. Pt reports bending down like squat she gets crepitis and it hurts. Hasn't kayaked recently d/t difficulty getting in/out of the boat. Happed a few times where she was walking up a hill where she couldn't move fwd for about 4 steps and had to circumduct R leg. Treatment Goals Patient/Caregiver Goals exercises that would help knee OA, be able to get up/down from the ground, less pain w/ stairs and hills or feel like it will give out, get in/out of kayak (squat) PT-OP-C Subjective Start: 12/20/23 08:35 Freq: Status: Active Protocol: Document 01/10/24 09:06 [facility] (Rec: 01/10/24 13:30 [facility] [id number]) OP-PT Subjective Patient Comments Patient Comments some soreness after last session but didn't last that long PT-OP-D Balance Start: 12/20/23 08:35 Freq: Status: Active Protocol: Document 12/27/23 09:06 [facility] (Rec: 12/27/23 09:50 [facility] [id number]) Balance Tests Single Limb Standing Single Limb- Right >30 sec Single Limb- Left >30 sec PT-OP-G Mobility & Gait Start: 12/20/23 08:35 Freq: Status: Active Protocol: Document 12/27/23 09:06 [facility] (Rec: 12/27/23 09:50 [facility] [id number]) OP Gait Assessment Comments Gait Comments dec trunk motion, excessive pronation PT-OP-J Posture/Palpation/Skin Start: 12/20/23 08:35 Freq: Status: Active Protocol: Document 12/27/23 09:06 [facility] (Rec: 12/27/23 09:50 [facility] [id number]) Posture Evaluation Comments Posture Comments R iliac crest higher, equal greater trochanter, IR of femur, ER tibia PT-OP-K Range of Motion Start: 12/20/23 08:35 Freq: Status: Active Protocol: Document 12/27/23 09:06 [facility] (Rec: 12/27/23 09:50 [facility] [id number]) Knee Goniometric Range of Motion Knee Left Flexion Active (degrees) 128 Extension Active (degrees) 0 Comments flex feel in back of thigh Right Flexion Active (degrees) 130 Extension Active (degrees) 3 Comments pain both directions PT-OP-L Special Tests Start: 12/20/23 08:35 Freq: Status: Active Protocol: Document 12/27/23 09:06 [facility] (Rec: 12/27/23 09:50 [facility] [id number]) Special Tests Knee Special Tests Chuck Test Comments neg B ligaments Comments ACL, MCL, PCL, LCL neg B PT-OP-M Strength Start: 12/20/23 08:35 Freq: Status: Active Protocol: Document 12/27/23 09:06 [facility] (Rec: 12/27/23 09:50 [facility] [id number]) Hip Strength Hip Manual Muscle Testing Left Flexion (L2) 3+ Fair+ Extension (S1) 4+ Good+ Abduction 3+ Fair+ Adduction 3+ Fair+ External Rotation 3+ Fair+ Internal Rotation 5 Normal Right Flexion (L2) 3+ Fair+ Extension (S1) 4+ Good+ Abduction 3+ Fair+ Adduction 3+ Fair+ External Rotation 3+ Fair+ Internal Rotation 5 Normal Knee Strength Knee Manual Muscle Testing Left Flexion (S2) 4- Good- Extension (L3) 4- Good- Right Flexion (S2) 4 Good Extension (L3) 4 Good Ankle/Foot Strength Ankle and Foot Manual Muscle Testing Left Dorsiflexion (L4) 5 Normal Plantarflexion (S1) 5 Normal Comments 20 heel raises pain in knee Right Dorsiflexion (L4) 5 Normal Plantarflexion (S1) 5 Normal Comments 20 heel raises w/knee pain and R foot(starts to bend R knee) PT-OP-Q Treatments Start: 12/20/23 08:35 Freq: Status: Active Protocol: Document 01/10/24 09:06 [facility] (Rec: 01/10/24 13:30 [facility] [id number]) Therapeutic Exercises Supine Exercises bridge Supine Exercise Name SL Side bilateral Reps/Minutes 15 ea Comments cues for control, knee position and segmental Standing Exercises hip hinge Side bilateral Equipment Used step Reps/Minutes 15 Comments cues soft knee lateral step up Standing Exercise Name HEP review Side bilateral Equipment Used 4 step Reps/Minutes 12 ea Comments cues for hip hinge and getting glute under LE Manual Therapy Treatment Consent Patient gave verbal consent for manual Yes treatment Soft Tissue Mobilization knee Comments plunger L knee sitting w/knee flex/ext Joint Mobilizations hip Comments R IR free the ball and on axis c/r Taping KT Treatment Focus PF stability Type of Tape Kinesio Tape Comments 1 I strip under each patella; upsdie down Y R knee Neuro Re-Education Treatment Other Activities facilitation Reps/Duration 8 min Comments manual facilition in LLE for glute and hip stability seated at EOB through traction from PT-mult reps PT-OP-T Assessment and Plan Start: 12/20/23 08:35 Freq: Status: Active Protocol: Document 01/10/24 09:06 [facility] (Rec: 01/10/24 13:30 [facility] [id number]) Physical Therapy Assessment Goals strength Short Term Goal (STG) Pt will be indep w/HEP STG Duration 02/09 [facility] Goal (LTG) Pt will score at least 4+/5 on all BLE MMT and at least 3/5 on LPM to show improved strength and stability in order to allow greater ease w/ activities w/o inc pain. LTG Duration 03/13 stairs Short Term Goal (STG) Pt will be able to reiciprocate up stairs w/o rail w/o inc knee pain. STG Duration 02/11 [facility] Goal (LTG) Pt will be able to reiciprocate down stairs w/o rail w/o inc knee pain. LTG Duration 03/20/24 activities Short Term Goal (STG) Pt will be able to get up/down from the ground indep safely STG Duration 02/12 Rn Lpn Cna Goal (LTG) Pt will be able to hike on hills w/o knee pain greater than 2/10 and without feeling unstable LTG Duration 03/18/24 Assessment Summary Assessment Pt able to progress to more difficult bridge. Unable to keep hips level w/lat step up on 6 in step causing R knee pains o dec to 4 in step which is still difficult for pt and pt required max cues. Manual dec pain in R knee w/bridge Physical Therapy Plan Next Visit Focus/Plan Next Note Type Treatment Note Next Visit Plan review hip hikes, cont to work on hips staying level for sidestep on step faciliation of glutes, pnf manual to femure and knee tracking
--- NOTE | 2024-01-25 10:27 | PT.OTN ---
Current Diagnoses Pain in right knee (01/25/24) Pain in left knee (01/25/24) Difficulty in walking, not elsewhere classified (01/25/24) Abnormal posture (01/25/24) Weakness (01/25/24) Physical Therapy Treatment Note PT-OP-A Visit Information Start: 12/20/23 08:35 Freq: Status: Active Protocol: Document 01/25/24 09:49 SP (Rec: 01/25/24 10:34 SP [id number]) Out-Patient Physical Therapy Visit Information Visit Information Visit Type Treatment Note Visit Start Time 09:49 Visit Stop Time 10:27 Visit Number 6 (08/22 with eval) Number of ASSOCIATE PROFESSOR OF BIOLOGY Visits 1 PT-OP-B Current Condition Start: 12/20/23 08:35 Freq: Status: Active Protocol: Document 12/27/23 09:06 [facility] (Rec: 12/27/23 09:50 [facility] [id number]) Current Condition History of Current Condition Onset Date 4 years Current Complaints B knee pain History of Current Condition Pt reprots used to hike a ton but now it is painfula nd she doesn't trust her knees. she is doing less distance and elevation. She fell about 4 years ago on [place] and hurt her R hand a lot and focuse don that. Since then her knees haven't been the same. 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 Encouraged her to wear a brace when hiking but it was so hot so hasn't done it much. They also encuraged her to lose weight whichhasn't changed much. She is planning to try PT and work on wt more prior to injections. What scares her the most is when R>L gives out and that she cant get up from the ground. Knees lock up in bed until she tries to move it and she hears it click and it moves. Pt reports bending down like squat she gets crepitis and it hurts. Hasn't kayaked recently d/t difficulty getting in/out of the boat. Happed a few times where she was walking up a hill where she couldn't move fwd for about 4 steps and had to circumduct R leg. 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 PT-OP-D Balance Start: 12/20/23 08:35 Freq: Status: Active Protocol: Document 12/27/23 09:06 [facility] (Rec: 12/27/23 09:50 [facility] [id number]) Balance Tests Single Limb Standing Single Limb- Right >30 sec Single Limb- Left >30 sec PT-OP-G Mobility & Gait Start: 12/20/23 08:35 Freq: Status: Active Protocol: Document 12/27/23 09:06 [facility] (Rec: 12/27/23 09:50 [facility] [id number]) OP Gait Assessment Comments Gait Comments dec trunk motion, excessive pronation PT-OP-J Posture/Palpation/Skin Start: 12/20/23 08:35 Freq: Status: Active Protocol: Document 12/27/23 09:06 [facility] (Rec: 12/27/23 09:50 [facility] [id number]) Posture Evaluation Comments Posture Comments R iliac crest higher, equal greater trochanter, IR of femur, ER tibia PT-OP-K Range of Motion Start: 12/20/23 08:35 Freq: Status: Active Protocol: Document 12/27/23 09:06 [facility] (Rec: 12/27/23 09:50 [facility] [id number]) Knee Goniometric Range of Motion Knee Left Flexion Active (degrees) 128 Extension Active (degrees) 0 Comments flex feel in back of thigh Right Flexion Active (degrees) 130 Extension Active (degrees) 3 Comments pain both directions PT-OP-L Special Tests Start: 12/20/23 08:35 Freq: Status: Active Protocol: Document 12/27/23 09:06 [facility] (Rec: 12/27/23 09:50 [facility] [id number]) Special Tests Knee Special Tests Chuck Test Comments neg B ligaments Comments ACL, MCL, PCL, LCL neg B PT-OP-M Strength Start: 12/20/23 08:35 Freq: Status: Active Protocol: Document 12/27/23 09:06 [facility] (Rec: 12/27/23 09:50 [facility] [id number]) Hip Strength Hip Manual Muscle Testing Left Flexion (L2) 3+ Fair+ Extension (S1) 4+ Good+ Abduction 3+ Fair+ Adduction 3+ Fair+ External Rotation 3+ Fair+ Internal Rotation 5 Normal Right Flexion (L2) 3+ Fair+ Extension (S1) 4+ Good+ Abduction 3+ Fair+ Adduction 3+ Fair+ External Rotation 3+ Fair+ Internal Rotation 5 Normal Knee Strength Knee Manual Muscle Testing Left Flexion (S2) 4- Good- Extension (L3) 4- Good- Right Flexion (S2) 4 Good Extension (L3) 4 Good Ankle/Foot Strength Ankle and Foot Manual Muscle Testing Left Dorsiflexion (L4) 5 Normal Plantarflexion (S1) 5 Normal Comments 20 heel raises pain in knee Right Dorsiflexion (L4) 5 Normal Plantarflexion (S1) 5 Normal Comments 20 heel raises w/knee pain and R foot(starts to bend R knee) PT-OP-Q Treatments Start: 12/20/23 08:35 Freq: Status: Active Protocol: Document 01/25/24 09:49 SP (Rec: 01/25/24 10:34 SP [id number]) Therapeutic Exercises Supine Exercises bridge Supine Exercise Name SL Side bilateral Reps/Minutes 15 ea Comments cues for control, knee and foot position and segmental Standing Exercises hip hinge Standing Exercise Name hip hike (abductor strengthening) /c HO Side bilateral Equipment Used step vs lateral to wall ( moving LE foot behind calf support stationary) Reps/Minutes 15 reps Comments cues soft stance LE knee- better form and hip abd fac at wall lateral step up Standing Exercise Name HEP review /c HO Side bilateral Equipment Used 4 step Reps/Minutes 12 ea Comments cues for hip hinge and getting glute under LE sidesteps Standing Exercise Name HEP: lateral and added fwd/bwd Side bilateral Resistance L3 at ankles-keep tension on Reps/Minutes 20ft x2 laps each Comments Improved DF eccentric return clearance, glut fac decrease distal lat knee Manual Therapy Treatment Consent Patient gave verbal consent for manual Yes treatment Soft Tissue Mobilization quad Body Location R distal quad, pat tendon ITB Mobilization Type Rolling,Sustained Pressure Intensity/Depth Moderate Comments manual STMs: quad, ITB rolling pin gross motor, tool distal quad superior patella, ITB Joint Mobilizations patello femoral Joint R>L Grade II Body Position Supine Comments sup, inf, med, medial tilt, rotation Taping KT Body Location Satish: Treatment Focus PF stability Type of Tape Kinesio Tape Comments 1. 1 I strip under each patella; upsdie down Y R knee 2. 1 horizontal support fat pad bilateral like a smile toward med/lat knee PT-OP-T Assessment and Plan Start: 12/20/23 08:35 Freq: Status: Active Protocol: Document 01/25/24 09:49 SP (Rec: 01/25/24 10:34 SP [id number]) Physical Therapy Assessment Goals strength Short Term Goal (STG) Pt will be indep w/HEP STG Duration 02/09 Care Home Goal (LTG) Pt will score at least 4+/5 on all BLE MMT and at least 3/5 on LPM to show improved strength and stability in order to allow greater ease w/ activities w/o inc pain. LTG Duration 03/13 stairs Short Term Goal (STG) Pt will be able to reiciprocate up stairs w/o rail w/o inc knee pain. STG Duration 02/11 Window Shade Estimator Goal (LTG) Pt will be able to reiciprocate down stairs w/o rail w/o inc knee pain. LTG Duration 03/20/24 activities Short Term Goal (STG) Pt will be able to get up/down from the ground indep safely STG Duration 02/12 Window Shade Estimator Goal (LTG) Pt will be able to hike on hills w/o knee pain greater than 2/10 and without feeling unstable LTG Duration 03/18/24 Assessment Summary Assessment Pt improved hip abd engagement strengthening with cues knee alignment, hip hinge and allowance to keep knee behind and with mid foot and foot behind stance LE during hip hike good abd muscle tiring and no pain in knees. Better understanding how can apply Ktaping if needed for home. Physical Therapy Plan Frequency and Duration Frequency of Treatment 2x/Week Duration of treatment (weeks) 12 Plan of Care Start Date 12/27/23 Plan of Care End Date 03/20/24 Therapeutic Interventions Therapeutic Interventions Balance Training,Gait Training ,Home Exercise Program,Joint Mobilizations,Manual Therapy, Neuromuscular Re-education, Patient/Caregiver Education, Self-Care/Home Management,Soft Tissue Mobilization,Taping, Therapeutic Activities, Therapeutic Exercises Modalities Cold Pack/Ice Massage,Electric Stimulation,Hot Packs, Infrared Therapy,Ultrasound Next Visit Focus/Plan Next Note Type Treatment Note Next Visit Plan Review HEP: hip hikes wall vs step, added f/b better glut fac, pnf manual to femure and knee tracking
--- NOTE | 2024-01-27 08:16 | PT.OTN ---
Current Diagnoses Pain in right knee (01/27/24) Pain in left knee (01/27/24) Difficulty in walking, not elsewhere classified (01/27/24) Abnormal posture (01/27/24) Weakness (01/27/24) Physical Therapy Treatment Note PT-OP-A Visit Information Start: 12/20/23 08:35 Freq: Status: Active Protocol: Document 01/27/24 07:30 [facility] (Rec: 01/27/24 08:16 [facility] [id number]) Out-Patient Physical Therapy Visit Information Visit Information Visit Type Progress Note Visit Start Time 07:32 Visit Stop Time 08:12 Visit Number 7 (03/24) Number of LONGSHORE EQUIPMENT OPERATOR Visits 0 PT-OP-B Current Condition Start: 12/20/23 08:35 Freq: Status: Active Protocol: Document 12/27/23 09:06 [facility] (Rec: 12/27/23 09:50 [facility] [id number]) Current Condition History of Current Condition Onset Date 4 years Current Complaints B knee pain History of Current Condition Pt reprots used to hike a ton but now it is painfula nd she doesn't trust her knees. she is doing less distance and elevation. She fell about 4 years ago on [place] and hurt her R hand a lot and focuse don that. Since then her knees haven't been the same. 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 Encouraged her to wear a brace when hiking but it was so hot so hasn't done it much. They also encuraged her to lose weight whichhasn't changed much. She is planning to try PT and work on wt more prior to injections. What scares her the most is when R>L gives out and that she cant get up from the ground. Knees lock up in bed until she tries to move it and she hears it click and it moves. Pt reports bending down like squat she gets crepitis and it hurts. Hasn't kayaked recently d/t difficulty getting in/out of the boat. Happed a few times where she was walking up a hill where she couldn't move fwd for about 4 steps and had to circumduct R leg. Treatment Goals Patient/Caregiver Goals exercises that would help knee OA, be able to get up/down from the ground, less pain w/ stairs and hills or feel like it will give out, get in/out of kayak (squat) PT-OP-C Subjective Start: 12/20/23 08:35 Freq: Status: Active Protocol: Document 01/27/24 07:30 [facility] (Rec: 01/27/24 08:16 [facility] [id number]) OP-PT Subjective Patient Comments Patient Comments Pt feels less unstable and is feeling stronger. Patient Reported Progress Improving PT-OP-D Balance Start: 12/20/23 08:35 Freq: Status: Active Protocol: Document 12/27/23 09:06 [facility] (Rec: 12/27/23 09:50 [facility] [id number]) Balance Tests Single Limb Standing Single Limb- Right >30 sec Single Limb- Left >30 sec PT-OP-G Mobility & Gait Start: 12/20/23 08:35 Freq: Status: Active Protocol: Document 12/27/23 09:06 [facility] (Rec: 12/27/23 09:50 [facility] [id number]) OP Gait Assessment Comments Gait Comments dec trunk motion, excessive pronation PT-OP-J Posture/Palpation/Skin Start: 12/20/23 08:35 Freq: Status: Active Protocol: Document 01/27/24 07:30 [facility] (Rec: 01/27/24 08:16 [facility] [id number]) Posture Evaluation [facility] Postural Classification System Lumbar Protective Mechanism Left AP 2 Lumbar Protective Mechanism Right AP 2 Lumbar Protective Mechanism Left PA 3 Lumbar Protective Mechanism Right PA 4 PT-OP-K Range of Motion Start: 12/20/23 08:35 Freq: Status: Active Protocol: Document 12/27/23 09:06 [facility] (Rec: 12/27/23 09:50 [facility] [id number]) Knee Goniometric Range of Motion Knee Left Flexion Active (degrees) 128 Extension Active (degrees) 0 Comments flex feel in back of thigh Right Flexion Active (degrees) 130 Extension Active (degrees) 3 Comments pain both directions PT-OP-L Special Tests Start: 12/20/23 08:35 Freq: Status: Active Protocol: Document 12/27/23 09:06 [facility] (Rec: 12/27/23 09:50 [facility] [id number]) Special Tests Knee Special Tests Chuck Test Comments neg B ligaments Comments ACL, MCL, PCL, LCL neg B PT-OP-M Strength Start: 12/20/23 08:35 Freq: Status: Active Protocol: Document 01/27/24 07:30 [facility] (Rec: 01/27/24 08:16 [facility] [id number]) Hip Strength Hip Manual Muscle Testing Left Flexion (L2) 4 Good Extension (S1) 5 Normal Abduction 4 Good Adduction 4 Good External Rotation 4 Good Internal Rotation 5 Normal Right Flexion (L2) 4 Good Extension (S1) 5 Normal Abduction 4 Good Adduction 4 Good External Rotation 4 Good Internal Rotation 5 Normal Knee Strength Knee Manual Muscle Testing Left Flexion (S2) 4+ Good+ Extension (L3) 4+ Good+ Right Flexion (S2) 4+ Good+ Extension (L3) 4+ Good+ Ankle/Foot Strength Ankle and Foot Manual Muscle Testing Left Dorsiflexion (L4) 5 Normal Plantarflexion (S1) 5 Normal Comments 20 heel raises and some lat thigh discomfort Right Dorsiflexion (L4) 5 Normal Plantarflexion (S1) 5 Normal Comments 20 heel raises PT-OP-Q Treatments Start: 12/20/23 08:35 Freq: Status: Active Protocol: Document 01/27/24 07:30 [facility] (Rec: 01/27/24 08:16 [facility] [id number]) Gym Equipment Shuttle Recovery Unilateral Squats Details B Resistance 37# Shuttle Recovery Platform Stable Reps/Time 12 ea Bilateral Squats Details min pain noted Resistance 75# Shuttle Recovery Platform Stable Reps/Time 12 Therapeutic Exercises Supine Exercises core Supine Exercise Name DL isometric w/DF Side bilateral Reps/Minutes 30 sec Standing Exercises hip hinge Standing Exercise Name hip hike (abductor strengthening) /c HO Side bilateral Equipment Used step Reps/Minutes 15 reps Comments min cues needed lateral step up Standing Exercise Name HEP review Side bilateral Equipment Used 4 step, 6 in step Reps/Minutes 8 ea height B Comments cues slow decent and hip hinge mini squats Standing Exercise Name wall squat w/ball-cues set up Side bilateral Reps/Minutes 10 Comments HEP partial range Manual Therapy Treatment Consent Patient gave verbal consent for manual Yes treatment Soft Tissue Mobilization quad Body Location B distal Mobilization Type Rolling,Strumming,Sustained Pressure Comments pt taught how to find points herself Joint Mobilizations patello femoral Joint R Grade III Body Position Supine Comments sup, inf, med, medial tilt, rotation tibiofemoral Joint PA femur c/r PT-OP-T Assessment and Plan Start: 12/20/23 08:35 Freq: Status: Active Protocol: Document 01/27/24 07:30 [facility] (Rec: 01/27/24 08:16 [facility] [id number]) Physical Therapy Assessment Goals strength Short Term Goal (STG) Pt will be indep w/HEP STG Duration achieved advancing as able Supervisor Electronics Inspection Goal (LTG) Pt will score at least 4+/5 on all BLE MMT and at least 3/5 on LPM to show improved strength and stability in order to allow greater ease w/ activities w/o inc pain. 01/26-improving LTG Duration 03/13 stairs Short Term Goal (STG) Pt will be able to reiciprocate up stairs w/o rail w/o inc knee pain. STG Duration achieved 01/26 Penitentiary Goal (LTG) Pt will be able to reiciprocate down stairs w/o rail w/o inc knee pain. 01/26-more cautious, uses rail , hurts mostly R LTG Duration 03/20/24 activities Short Term Goal (STG) Pt will be able to get up/down from the ground indep safely STG Duration achieved 01/26 Penitentiary Goal (LTG) Pt will be able to hike on hills w/o knee pain greater than 2/10 and without feeling unstable 01/26-better, done some short hikes w/steep sections and didn't feel unstable, 3/10 LTG Duration 03/18/24 Assessment Summary Assessment Pt is improving with strength and stability and able to do more with less pain and crepitis noted today but still significnt clunking w/ squatting. Able to tolerate leg press well w/o clunking. Cont PT for strength and stabiltiy to dc pain Physical Therapy Plan Frequency and Duration Frequency of Treatment 2x/Week Duration of treatment (weeks) 12 Plan of Care Start Date 12/27/23 Plan of Care End Date 03/20/24 Therapeutic Interventions Therapeutic Interventions Balance Training,Gait Training ,Home Exercise Program,Joint Mobilizations,Manual Therapy, Neuromuscular Re-education, Patient/Caregiver Education, Self-Care/Home Management,Soft Tissue Mobilization,Taping, Therapeutic Activities, Therapeutic Exercises Modalities Cold Pack/Ice Massage,Electric Stimulation,Hot Packs, Infrared Therapy,Ultrasound Next Visit Focus/Plan Next Note Type Treatment Note Next Visit Plan cont to work steps, try fwd step up, advance leg press as able, pnf manual to femure and knee tracking
--- NOTE | 2024-02-01 16:30 | PT.OTN ---
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 she is doing less distance and elevation. She fell about 4 years ago on [place] and hurt her R hand a lot and focuse don that. Since then her knees haven't been the same. 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 Encouraged her to wear a brace when hiking but it was so hot so hasn't done it much. They also encuraged her to lose weight whichhasn't changed much. She is planning to try PT and work on wt more prior to injections. What scares her the most is when R>L gives out and that she cant get up from the ground. Knees lock up in bed until she tries to move it and she hears it click and it moves. Pt reports bending down like squat she gets crepitis and it hurts. Hasn't kayaked recently d/t difficulty getting in/out of the boat. Happed a few times where she was walking up a hill where she couldn't move fwd for about 4 steps and had to circumduct R leg. Treatment Goals Patient/Caregiver Goals exercises that would help knee OA, be able to get up/down from the ground, less pain w/ stairs and hills or feel like it will give out, get in/out of kayak (squat) PT-OP-C Subjective Start: 12/20/23 08:35 Freq: Status: Active Protocol: Document 02/01/24 11:36 SW (Rec: 02/01/24 12:39 SW [id number]) OP-PT Subjective Patient Comments Patient Comments Pt reports sitting too long and getting up notices pain, and locking out at night. Pt reports buckling, does not happen often. PT-OP-D Balance Start: 12/20/23 08:35 Freq: Status: Active Protocol: Document 12/27/23 09:06 [facility] (Rec: 12/27/23 09:50 [facility] [id number]) Balance Tests Single Limb Standing Single Limb- Right >30 sec Single Limb- Left >30 sec PT-OP-G Mobility & Gait Start: 12/20/23 08:35 Freq: Status: Active Protocol: Document 12/27/23 09:06 [facility] (Rec: 12/27/23 09:50 [facility] [id number]) OP Gait Assessment Comments Gait Comments dec trunk motion, excessive pronation PT-OP-J Posture/Palpation/Skin Start: 12/20/23 08:35 Freq: Status: Active Protocol: Document 01/27/24 07:30 [facility] (Rec: 01/27/24 08:16 [facility] [id number]) Posture Evaluation [facility] Postural Classification System Lumbar Protective Mechanism Left AP 2 Lumbar Protective Mechanism Right AP 2 Lumbar Protective Mechanism Left PA 3 Lumbar Protective Mechanism Right PA 4 PT-OP-K Range of Motion Start: 12/20/23 08:35 Freq: Status: Active Protocol: Document 12/27/23 09:06 [facility] (Rec: 12/27/23 09:50 [facility] [id number]) Knee Goniometric Range of Motion Knee Left Flexion Active (degrees) 128 Extension Active (degrees) 0 Comments flex feel in back of thigh Right Flexion Active (degrees) 130 Extension Active (degrees) 3 Comments pain both directions PT-OP-L Special Tests Start: 12/20/23 08:35 Freq: Status: Active Protocol: Document 12/27/23 09:06 [facility] (Rec: 12/27/23 09:50 [facility] [id number]) Special Tests Knee Special Tests Chuck Test Comments neg B ligaments Comments ACL, MCL, PCL, LCL neg B PT-OP-M Strength Start: 12/20/23 08:35 Freq: Status: Active Protocol: Document 01/27/24 07:30 [facility] (Rec: 01/27/24 08:16 [facility] [id number]) Hip Strength Hip Manual Muscle Testing Left Flexion (L2) 4 Good Extension (S1) 5 Normal Abduction 4 Good Adduction 4 Good External Rotation 4 Good Internal Rotation 5 Normal Right Flexion (L2) 4 Good Extension (S1) 5 Normal Abduction 4 Good Adduction 4 Good External Rotation 4 Good Internal Rotation 5 Normal Knee Strength Knee Manual Muscle Testing Left Flexion (S2) 4+ Good+ Extension (L3) 4+ Good+ Right Flexion (S2) 4+ Good+ Extension (L3) 4+ Good+ Ankle/Foot Strength Ankle and Foot Manual Muscle Testing Left Dorsiflexion (L4) 5 Normal Plantarflexion (S1) 5 Normal Comments 20 heel raises and some lat thigh discomfort Right Dorsiflexion (L4) 5 Normal Plantarflexion (S1) 5 Normal Comments 20 heel raises PT-OP-Q Treatments Start: 12/20/23 08:35 Freq: Status: Active Protocol: Document 02/01/24 11:36 (Rec: 02/01/24 12:39 [id number]) Gym Equipment Shuttle Recovery Unilateral Squats Details B Resistance 37# Shuttle Recovery Platform Stable Reps/Time 12 ea Bilateral Squats Details min pain noted Resistance 75# Shuttle Recovery Platform Stable Reps/Time 12 Therapeutic Exercises Supine Exercises core Supine Exercise Name DL isometric w/DF Side bilateral Reps/Minutes 30 sec bridge Supine Exercise Name SL Side bilateral Reps/Minutes 15 ea Comments cues for control, knee and foot position and segmental Standing Exercises hip hinge Standing Exercise Name hip hike (abductor strengthening) /c HO Side bilateral Equipment Used step Reps/Minutes 15 reps Comments min cues needed lateral step up Standing Exercise Name HEP review Side bilateral Equipment Used 4 step, 6 in step Reps/Minutes 8 ea height B Comments cues slow decent and hip hinge mini squats Standing Exercise Name wall squat w/ball-cues set up, disc'd for today Side bilateral Reps/Minutes 10 Comments HEP partial range, minimal range w/out clunking Manual Therapy Treatment Joint Mobilizations patello femoral Joint R, L Grade III Body Position Seated Comments leg partially extended sup, inf, med, medial tilt Taping KT Comments Removed tape this session, some redness present in R knee distal to patella, skin intact and L knee lateral redness, skin intact , bilateral knee dryness. Did not re-apply tape today, to give skin time to heal. PT-OP-T Assessment and Plan Start: 12/20/23 08:35 Freq: Status: Active Protocol: Document 02/01/24 11:36 (Rec: 02/01/24 12:39 [id number]) Physical Therapy Assessment Goals strength Short Term Goal (STG) Pt will be indep w/HEP STG Duration achieved advancing as able Special Machine Operator Goal (LTG) Pt will score at least 4+/5 on all BLE MMT and at least 3/5 on LPM to show improved strength and stability in order to allow greater ease w/ activities w/o inc pain. 01/26-improving LTG Duration 03/13 stairs Short Term Goal (STG) Pt will be able to reiciprocate up stairs w/o rail w/o inc knee pain. STG Duration achieved 01/26 Special Machine Operator Goal (LTG) Pt will be able to reiciprocate down stairs w/o rail w/o inc knee pain. 01/26-more cautious, uses rail , hurts mostly R LTG Duration 03/20/24 activities Short Term Goal (STG) Pt will be able to get up/down from the ground indep safely STG Duration achieved 01/26 Special Machine Operator Goal (LTG) Pt will be able to hike on hills w/o knee pain greater than 2/10 and without feeling unstable 01/26-better, done some short hikes w/steep sections and didn't feel unstable, 3/10 LTG Duration 03/18/24 Assessment Summary Assessment Pt had a minimal increase in pain with leg press this session, relieved with decreased resistance, and adjustment of foot placement. Pt ended session with no pain. Progressed pt to a step ups this session on 4 step, tolerated well, no pain, Left knee flex/ext ratchety movement, not as smooth as right knee. Retrialed wall squat with decreased depth, minimal depth before onset of clunking. Plan to assess pt tolerance next session and review step ups next session as able. Physical Therapy Plan Frequency and Duration Frequency of Treatment 2x/Week Duration of treatment (weeks) 12 Plan of Care Start Date 12/27/23 Plan of Care End Date 03/20/24 Therapeutic Interventions Therapeutic Interventions Balance Training,Gait Training ,Home Exercise Program,Joint Mobilizations,Manual Therapy, Neuromuscular Re-education, Patient/Caregiver Education, Self-Care/Home Management,Soft Tissue Mobilization,Taping, Therapeutic Activities, Therapeutic Exercises Modalities Cold Pack/Ice Massage,Electric Stimulation,Hot Packs, Infrared Therapy,Ultrasound Next Visit Focus/Plan Next Note Type Treatment Note Next Visit Plan Review Step ups next session as able, check skin next session and re apply K tape prn cont to work steps, try fwd step up, advance leg press as able, pnf manual to femure and knee tracking
--- NOTE | 2024-02-14 08:32 | PT-OP ANOTE ---
Pt no shows to appointment. PT calls pt at 0832 and pt states that she thought appointment was at 0845. PT reminds pt of next visit on 02/17/24 at 0945 and she states she will make that appointment.
--- NOTE | 2024-02-17 14:38 | PT.OTN ---
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 she is doing less distance and elevation. She fell about 4 years ago on [place] and hurt her R hand a lot and focuse don that. Since then her knees haven't been the same. 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 Encouraged her to wear a brace when hiking but it was so hot so hasn't done it much. They also encuraged her to lose weight whichhasn't changed much. She is planning to try PT and work on wt more prior to injections. What scares her the most is when R>L gives out and that she cant get up from the ground. Knees lock up in bed until she tries to move it and she hears it click and it moves. Pt reports bending down like squat she gets crepitis and it hurts. Hasn't kayaked recently d/t difficulty getting in/out of the boat. Happed a few times where she was walking up a hill where she couldn't move fwd for about 4 steps and had to circumduct R leg. Treatment Goals Patient/Caregiver Goals exercises that would help knee OA, be able to get up/down from the ground, less pain w/ stairs and hills or feel like it will give out, get in/out of kayak (squat) PT-OP-C Subjective Start: 12/20/23 08:35 Freq: Status: Active Protocol: Document 02/17/24 10:04 SW (Rec: 02/17/24 12:01 SW [id number]) OP-PT Subjective Patient Comments Patient Comments Pt reports occasional pain in posterior knees, proximal calves, distal to origin L>R, intermittent, not all the time . PT-OP-D Balance Start: 12/20/23 08:35 Freq: Status: Active Protocol: Document 12/27/23 09:06 [facility] (Rec: 12/27/23 09:50 [facility] [id number]) Balance Tests Single Limb Standing Single Limb- Right >30 sec Single Limb- Left >30 sec PT-OP-G Mobility & Gait Start: 12/20/23 08:35 Freq: Status: Active Protocol: Document 12/27/23 09:06 [facility] (Rec: 12/27/23 09:50 [facility] [id number]) OP Gait Assessment Comments Gait Comments dec trunk motion, excessive pronation PT-OP-J Posture/Palpation/Skin Start: 12/20/23 08:35 Freq: Status: Active Protocol: Document 01/27/24 07:30 [facility] (Rec: 01/27/24 08:16 [facility] [id number]) Posture Evaluation [facility] Postural Classification System Lumbar Protective Mechanism Left AP 2 Lumbar Protective Mechanism Right AP 2 Lumbar Protective Mechanism Left PA 3 Lumbar Protective Mechanism Right PA 4 PT-OP-K Range of Motion Start: 12/20/23 08:35 Freq: Status: Active Protocol: Document 12/27/23 09:06 [facility] (Rec: 12/27/23 09:50 [facility] [id number]) Knee Goniometric Range of Motion Knee Left Flexion Active (degrees) 128 Extension Active (degrees) 0 Comments flex feel in back of thigh Right Flexion Active (degrees) 130 Extension Active (degrees) 3 Comments pain both directions PT-OP-L Special Tests Start: 12/20/23 08:35 Freq: Status: Active Protocol: Document 12/27/23 09:06 [facility] (Rec: 12/27/23 09:50 [facility] [id number]) Special Tests Knee Special Tests Chuck Test Comments neg B ligaments Comments ACL, MCL, PCL, LCL neg B PT-OP-M Strength Start: 12/20/23 08:35 Freq: Status: Active Protocol: Document 01/27/24 07:30 [facility] (Rec: 01/27/24 08:16 [facility] [id number]) Hip Strength Hip Manual Muscle Testing Left Flexion (L2) 4 Good Extension (S1) 5 Normal Abduction 4 Good Adduction 4 Good External Rotation 4 Good Internal Rotation 5 Normal Right Flexion (L2) 4 Good Extension (S1) 5 Normal Abduction 4 Good Adduction 4 Good External Rotation 4 Good Internal Rotation 5 Normal Knee Strength Knee Manual Muscle Testing Left Flexion (S2) 4+ Good+ Extension (L3) 4+ Good+ Right Flexion (S2) 4+ Good+ Extension (L3) 4+ Good+ Ankle/Foot Strength Ankle and Foot Manual Muscle Testing Left Dorsiflexion (L4) 5 Normal Plantarflexion (S1) 5 Normal Comments 20 heel raises and some lat thigh discomfort Right Dorsiflexion (L4) 5 Normal Plantarflexion (S1) 5 Normal Comments 20 heel raises PT-OP-Q Treatments Start: 12/20/23 08:35 Freq: Status: Active Protocol: Document 02/17/24 10:04 (Rec: 02/17/24 10:46 [id number]) Gym Equipment Shuttle Recovery Unilateral Squats Details B Resistance 37# Shuttle Recovery Platform Stable Reps/Time 15 Bilateral Squats Details min pain with 75# Resistance 75#>62# Shuttle Recovery Platform Stable Reps/Time 2x10 Therapeutic Exercises Supine Exercises core Supine Exercise Name DL isometric w/DF, May, Trialed Alt LE tap with 90/90 hip/knee Side bilateral Reps/Minutes 30 sec Comments tactile/verbal cues for abdominal bracing, cues for breathwork Sidelying Exercises clamshells Sidelying Exercise Name verbal review Standing Exercises Hip 3 ways Standing Exercise Name flex,abd,ext Resistance Lvl 3 TB above knees Equipment Used @ rail for UE balance support Reps/Minutes 2 x 10 ea Comments cues for core stabilization, extended time for pt education and execution Calf stretch Standing Exercise Name 1.Gastroc stretch Side bilateral Equipment Used Ch[place], UE support @ rail Reps/Minutes 2x30 each Comments cues for gentle, pain free stretch Heel raises Standing Exercise Name Heel raises Side bilateral Equipment Used @ rail Reps/Minutes x10, x15 Comments post calf stretch, cues for slow eccentric control, good tolerance sidesteps Standing Exercise Name HEP: lateral and added fwd/bwd Side bilateral Resistance L3 at ankles-keep tension on Reps/Minutes 20ft x2 laps each Comments Improved DF eccentric return clearance, glut fac decrease distal lat knee Manual Therapy Treatment Taping KT Body Location bilateral knees Treatment Focus Pf stability Type of Tape Kinesio Skin Inspection yes, fully intact, no redness or dryness Comments 1. I strip distal to patella 2. Y strip to facilitate patellar tracking Educated and instructed pt on possible adverse side effects with Ktape. Instructed pt to remove within 3-5 days, or sooner if discomfort, redness, itching, signs of adverse reaction or pt feels like it is no longer working. Instructed pt on correct removal of K tape. PT-OP-T Assessment and Plan Start: 12/20/23 08:35 Freq: Status: Active Protocol: Document 02/17/24 10:04 (Rec: 02/17/24 10:46 [id number]) Physical Therapy Assessment Goals strength Short Term Goal (STG) Pt will be indep w/HEP STG Duration achieved advancing as able Polystyrene Molding Machine Tender Goal (LTG) Pt will score at least 4+/5 on all BLE MMT and at least 3/5 on LPM to show improved strength and stability in order to allow greater ease w/ activities w/o inc pain. 01/26-improving LTG Duration 03/13 stairs Short Term Goal (STG) Pt will be able to reiciprocate up stairs w/o rail w/o inc knee pain. STG Duration achieved 01/26 Polystyrene Molding Machine Tender Goal (LTG) Pt will be able to reiciprocate down stairs w/o rail w/o inc knee pain. 01/26-more cautious, uses rail , hurts mostly R LTG Duration 03/20/24 activities Short Term Goal (STG) Pt will be able to get up/down from the ground indep safely STG Duration achieved 01/26 Shelter Goal (LTG) Pt will be able to hike on hills w/o knee pain greater than 2/10 and without feeling unstable 01/26-better, done some short hikes w/steep sections and didn't feel unstable, 3/10 LTG Duration 03/18/24 Assessment Summary Assessment Initiated hip 3 ways today to increase pt hip strength toward pt goals, mod cues required for correct execution . Extended time on new HEP exercises for pt education on anatomy, correct execution, and to facilitate activation of correct muscles. Pt reports some pain in posterior knees L>right, proximal calves, intermittent pain, intiated calf stretch followed up with heel raises post to reinforce stretch. Pt education on importance of not stretching into pain. Pt tolerated heel raises well with no increase in pain. Plan to followup on new HEP exercises next session and progress as able. Physical Therapy Plan Frequency and Duration Frequency of Treatment 2x/Week Duration of treatment (weeks) 12 Plan of Care Start Date 12/27/23 Plan of Care End Date 03/20/24 Therapeutic Interventions Therapeutic Interventions Balance Training,Gait Training ,Home Exercise Program,Joint Mobilizations,Manual Therapy, Neuromuscular Re-education, Patient/Caregiver Education, Self-Care/Home Management,Soft Tissue Mobilization,Taping, Therapeutic Activities, Therapeutic Exercises Modalities Cold Pack/Ice Massage,Electric Stimulation,Hot Packs, Infrared Therapy,Ultrasound Next Visit Focus/Plan Next Note Type Treatment Note Next Visit Plan Follow up on pt tolerance to new HEP hip exercises/calf stretch/heel raises next session. Assess tolerance to K tape and re-apply prn. Review Step ups next session as able, try fwd step up, advance leg press as able, pnf manual to femure and knee tracking
--- NOTE | 2024-02-21 10:02 | PT-OP ANOTE ---
Pt DNS for today's appt, left message regarding missed appt today, reminded policy 2 NS and will be DC, charge for NS and cancellation policy > 24 hrs preferred. Asked if any concerns having inability to make appt, benefits from attendance and reminded next appt 02/22 at 945 with PT.
--- NOTE | 2024-02-21 17:59 | PT-OP ANOTE ---
Pt called re: 2 no shows and DC per compliance policy. VM left re: this and that last appt will be cancelled and if need further PT to get new referral.
--- NOTE | 2024-02-21 18:02 | PT.OPDS ---
Current Diagnoses Pain in right knee (02/17/24) Pain in left knee (02/17/24) Difficulty in walking, not elsewhere classified (02/17/24) Abnormal posture (02/17/24) Weakness (02/17/24) Visit Care Team Role Provider Type Eda Chandra MD Attending Provider Physician Family Provider Primary Care Provider Referring Provider Specialty: Family Practice TOURIST GUIDE Address: [address] [place] [address], [id number] Email: [email or web address] Visit Number Visit Number 9 (05/22) Discharge Summary PT-OP-B Current Condition Start: 12/20/23 08:35 Freq: Status: Active Protocol: Document 12/27/23 09:06 [facility] (Rec: 12/27/23 09:50 [facility] [id number]) Current Condition History of Current Condition Onset Date 4 years Current Complaints B knee pain History of Current Condition Pt reprots used to hike a ton but now it is painfula nd she doesn't trust her knees. she is doing less distance and elevation. She fell about 4 years ago on [place] and hurt her R hand a lot and focuse don that. Since then her knees haven't been the same. 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 Encouraged her to wear a brace when hiking but it was so hot so hasn't done it much. They also encuraged her to lose weight whichhasn't changed much. She is planning to try PT and work on wt more prior to injections. What scares her the most is when R>L gives out and that she cant get up from the ground. Knees lock up in bed until she tries to move it and she hears it click and it moves. Pt reports bending down like squat she gets crepitis and it hurts. Hasn't kayaked recently d/t difficulty getting in/out of the boat. Happed a few times where she was walking up a hill where she couldn't move fwd for about 4 steps and had to circumduct R leg. Treatment Goals Patient/Caregiver Goals exercises that would help knee OA, be able to get up/down from the ground, less pain w/ stairs and hills or feel like it will give out, get in/out of kayak (squat) PT-OP-C Subjective Start: 12/20/23 08:35 Freq: Status: Active Protocol: Document 02/17/24 10:04 SW (Rec: 02/17/24 12:01 SW [id number]) OP-PT Subjective Patient Comments Patient Comments Pt reports occasional pain in posterior knees, proximal calves, distal to origin L>R, intermittent, not all the time . PT-OP-D Balance Start: 12/20/23 08:35 Freq: Status: Active Protocol: Document 12/27/23 09:06 [facility] (Rec: 12/27/23 09:50 [facility] [id number]) Balance Tests Single Limb Standing Single Limb- Right >30 sec Single Limb- Left >30 sec PT-OP-G Mobility & Gait Start: 12/20/23 08:35 Freq: Status: Active Protocol: Document 12/27/23 09:06 [facility] (Rec: 12/27/23 09:50 [facility] [id number]) OP Gait Assessment Comments Gait Comments dec trunk motion, excessive pronation PT-OP-J Posture/Palpation/Skin Start: 12/20/23 08:35 Freq: Status: Active Protocol: Document 01/27/24 07:30 [facility] (Rec: 01/27/24 08:16 [facility] [id number]) Posture Evaluation [facility] Postural Classification System Lumbar Protective Mechanism Left AP 2 Lumbar Protective Mechanism Right AP 2 Lumbar Protective Mechanism Left PA 3 Lumbar Protective Mechanism Right PA 4 PT-OP-K Range of Motion Start: 12/20/23 08:35 Freq: Status: Active Protocol: Document 12/27/23 09:06 [facility] (Rec: 12/27/23 09:50 [facility] [id number]) Knee Goniometric Range of Motion Knee Left Flexion Active (degrees) 128 Extension Active (degrees) 0 Comments flex feel in back of thigh Right Flexion Active (degrees) 130 Extension Active (degrees) 3 Comments pain both directions PT-OP-L Special Tests Start: 12/20/23 08:35 Freq: Status: Active Protocol: Document 12/27/23 09:06 [facility] (Rec: 12/27/23 09:50 [facility] [id number]) Special Tests Knee Special Tests Chuck Test Comments neg B ligaments Comments ACL, MCL, PCL, LCL neg B PT-OP-M Strength Start: 12/20/23 08:35 Freq: Status: Active Protocol: Document 01/27/24 07:30 [facility] (Rec: 01/27/24 08:16 [facility] [id number]) Hip Strength Hip Manual Muscle Testing Left Flexion (L2) 4 Good Extension (S1) 5 Normal Abduction 4 Good Adduction 4 Good External Rotation 4 Good Internal Rotation 5 Normal Right Flexion (L2) 4 Good Extension (S1) 5 Normal Abduction 4 Good Adduction 4 Good External Rotation 4 Good Internal Rotation 5 Normal Knee Strength Knee Manual Muscle Testing Left Flexion (S2) 4+ Good+ Extension (L3) 4+ Good+ Right Flexion (S2) 4+ Good+ Extension (L3) 4+ Good+ Ankle/Foot Strength Ankle and Foot Manual Muscle Testing Left Dorsiflexion (L4) 5 Normal Plantarflexion (S1) 5 Normal Comments 20 heel raises and some lat thigh discomfort Right Dorsiflexion (L4) 5 Normal Plantarflexion (S1) 5 Normal Comments 20 heel raises PT-OP-T Assessment and Plan Start: 12/20/23 08:35 Freq: Status: Active Protocol: Document 02/21/24 18:00 [facility] (Rec: 02/21/24 18:02 [facility] [id number]) Physical Therapy Assessment Goals strength Short Term Goal (STG) Pt will be indep w/HEP STG Duration achieved advancing as able Statistical Modeler Goal (LTG) Pt will score at least 4+/5 on all BLE MMT and at least 3/5 on LPM to show improved strength and stability in order to allow greater ease w/ activities w/o inc pain. 01/26-improving LTG Duration 03/13 stairs Short Term Goal (STG) Pt will be able to reiciprocate up stairs w/o rail w/o inc knee pain. STG Duration achieved 01/26 Statistical Modeler Goal (LTG) Pt will be able to reiciprocate down stairs w/o rail w/o inc knee pain. 01/26-more cautious, uses rail , hurts mostly R LTG Duration 03/20/24 activities Short Term Goal (STG) Pt will be able to get up/down from the ground indep safely STG Duration achieved 01/26 [facility] Goal (LTG) Pt will be able to hike on hills w/o knee pain greater than 2/10 and without feeling unstable 01/26-better, done some short hikes w/steep sections and didn't feel unstable, 05/22 LTG Duration 03/18/24 Assessment Summary Assessment Pt called re: 2 no shows and DC per compliance policy. VM left re: this and that last appt will be cancelled and if need further PT to get new referral. Pt did make progress w/PT but did still have significant loud crepitis and popping w/squatting deeper and WB knee flex activities. Encouraged in VM to cont HEP and to follow up w /ortho/sports med if pain cont and if needs further PT to get new referral.DC at this time d/t 2 no show and compliance policy. Physical Therapy Plan Discharge Physical Therapy Discharge Comments compliance contract (2 no shows)
== END 2024-02-23 10:14 | disposition home or self-care (01) ==
LOC: PHYS 09:45
PROVIDERS: Family Provider Family Medicine; PCP Family Medicine; Referring Provider Family Medicine; Visit Provider Family Medicine
DX: M25.561 Pain in right knee (principal); M25.562 Pain in left knee; R53.1 Weakness; R26.2 Difficulty in walking, not elsewhere classified; R29.3 Abnormal posture
CPT/HCPCS: 97110; 97112; 97140; 97162; 97535

== ENCOUNTER → 2024-07-03 17:52 | Outpatient (CLI) | payer MEDICARE, SELFPAY ==
--- NOTE | 2024-07-03 17:55 | DI.RAD.S_ITS ---
PROCEDURE: XR WRIST RT MIN 3V INDICATIONS: right wrist injury TECHNIQUE: Four views of the right wrist were acquired. COMPARISON: None. FINDINGS: Bones: Moderately comminuted fracture through the distal radius involving the radial styloid process base appreciated. There is intra-articular extension. Distal fragment is displaced less than 5 mm in a volar direction. Nondisplaced transverse fracture ulnar styloid process tip Joints: Mild STT 1st CMC and moderate 1st 2nd and 3rd MCP degeneration noted Soft tissues: Moderate diffuse soft swelling noted IMPRESSION: Moderately comminuted intra-articular fracture of the distal radius. Minimal displacement Nondisplaced transverse fracture ulnar styloid process tip Dictated by: Rashi Osullivan M.D. on 07/04/2024 at 8:12 Approved by: Rashi Osullivan M.D. on 07/04/2024 at 8:15
== END ==
PROVIDERS: Family Provider Family Medicine; PCP Family Medicine; Referring Provider Physician Assistant; Visit Provider Physician Assistant
DX: S52.571A Other intraarticular fracture of lower end of right radius, initial encounter for closed fracture (principal); S52.614A Nondisplaced fracture of right ulna styloid process, initial encounter for closed fracture; M25.531 Pain in right wrist
CPT/HCPCS: 73110

== ENCOUNTER 2024-09-08 13:00 | Outpatient (RCR) | payer MEDICARE, SELFPAY ==
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
== END 2024-09-18 11:29 | disposition home or self-care (01) ==
LOC: OT 13:00
PROVIDERS: Family Provider Family Medicine; PCP Family Medicine; Referring Provider Orthopaedic Surgery Adult Reconstructive Orthopaedic Surgery; Visit Provider Orthopaedic Surgery Adult Reconstructive Orthopaedic Surgery
DX: S52.514D Nondisplaced fracture of right radial styloid process, subsequent encounter for closed fracture with routine healing (principal)
CPT/HCPCS: 97110; 97165